=== PATIENT | female | born 1970 | race Caucasian/White ===

== ENCOUNTER 2020-09-10 07:21 | Outpatient (REF) | payer OTHER, SELFPAY ==
[2020-09-10 11:34] LABS: Cholesterol 263 mg/dL; HDL Cholesterol 83 mg/dL; LDL Cholesterol Calculated 166 mg/dl; Triglycerides 71 mg/dL
== END 2020-09-10 07:22 | disposition home or self-care (01) ==
LOC: HO.HMGCLDS 07:21
PROVIDERS: PCP Internal Medicine; Visit Provider Internal Medicine
DX: E78.5 Hyperlipidemia, unspecified (principal); J45.909 Unspecified asthma, uncomplicated; M25.519 Pain in unspecified shoulder
CPT/HCPCS: 36415; 80061

== ENCOUNTER 2021-04-06 20:54 | Emergency (ER) | payer OTHER, SELFPAY ==
[2021-04-06 21:13] VITALS: BP 150/71; PULSE 95; RESP 16; TEMP 37.6; O2SAT 97; BMI 29.9
[2021-04-06 21:38] LABS: COVID-19 Test Positive (Negative)
--- NOTE | 2021-04-06 22:36 | ED.GENADULT ---
HPI - General Adult General Chief complaint: General Medical Stated complaint: covid symptoms Time Seen by Provider: 04/06/21 22:35 Source: patient Mode of arrival: ambulatory Limitations: no limitations History of Present Illness HPI narrative: Patient already been vaccinated against COVID-19 has received booster dose yet with history of asthma and common immunodeficiency on Hizentra subQ Q weekly other family member sick with COVID-19 comes here for 1 day of headache loss of taste sensation congestion , cough, slight short of breath saturating 97% at room air also losing her taste sensation Related Data Home Medications Medication Instructions Recorded Confirmed albuterol sulfate 90 mcg/actuation 2 puff INHALATION Q6H PRN 02/16/20 09/16/20 aerosol inhaler (ProAir HFA) cetirizine 10 mg tablet 10 mg PO DAILY 02/16/20 09/16/20 immun glob G 4 gram/20 mL(20 SUBCUT QWEEK ml 02/16/20 09/16/20 %)-prol-IgA 0-50 mcg/mL subcutaneous soln (Hizentra) multivitamin 1 tab PO DAILY 02/16/20 09/16/20 nystatin 500,000 unit tablet 1,000,000 unit PO BID tab 02/16/20 09/16/20 fluticasone propionate 50 2 spray INTRANASAL DAILY 09/16/20 09/16/20 mcg/actuation nasal spray,suspension Previous Rx's Medication Instructions Recorded sumatriptan succinate 50 mg tablet 50 mg PO BID-TID PRN #12 tab 09/09/20 gabapentin 100 mg capsule 100 mg PO TID #90 cap 09/29/20 dexamethasone 6 mg tablet 6 mg PO DAILY #7 tab 04/06/21 (Decadron) Allergies Allergy/AdvReac Type Severity Reaction Status Date / Time meperidine [Demerol] AdvReac Unknown N/V Verified 09/16/20 08:44 Review of Systems Review of Systems: Yes all other systems are reviewed and are negative PMFSH Past Medical History Medical History Abnormal colonoscopy Annual physical exam Asthma Hyperlipidemia Liver hemangioma Migraine Normal Pap smear Osteoarthritis Seasonal allergic reaction Shoulder pain Vitamin D deficiency Surgical History History of microdiscectomy History of tubal ligation Family History Family History Father HTN (hypertension) Mother No problems noted. Brother No problems noted. Brother No problems noted. Sister No problems noted. Son No problems noted. Son No problems noted. Daughter No problems noted. Social History Social History Alcohol intake: never Patient Tobacco Use Status: Never used Tobacco Advance Directives: No Advance Directives Information Provided: Yes Patient : No Physical Exam Vital Signs: Vital Signs: Last Vital Signs Temp 99.6 F 04/06/21 21:13 Pulse 95 04/06/21 21:13 Resp 16 04/06/21 21:13 BP 150/71 H 04/06/21 21:13 Pulse Ox 97 04/06/21 21:13 BMI result Body Mass Index 29.9 Appearance: Alert. Oriented X3. No acute distress. ENT: Pharynx normal. Oral Mucosa moist Neck: Normal inspection. Neck supple. CVS: Normal heart rate and rhythm. Pulses normal. Respiratory: No respiratory distress. Equal air entry bilateral, no wheezing/rales/rhonchi Abdomen: Soft and nontender. Bowel sounds are present, Skin: Skin warm and dry. Normal skin color. Normal skin turgor. Extremities: No lower extremity edema. No calf tenderness Neuro: Oriented X 3. Medical Decision Making MDM Narrative Medical decision making narrative: Patient with high risk of having complication COVID-19 although she already got the vaccine but she has a common immuno deficiency on gamma globin treatment will give her Decadron advised to follow-up with [facility] for monoclonal antibody treatment if indicated Lab Data Lab results reviewed: Yes I reviewed the patient's lab results. Labs: Lab Results 04/06/21 Range/Units 21:17 COVID-19 ([facility]) Positive A (Negative) COVID-19 Clin Com See Note Discharge Plan Discharge Clinical Impression: COVID-19 Patient Disposition: Home, Self-Care Instructions: COVID-19 (Coronavirus Disease 2019) (ED) Additional Instructions: Social distancing as advised Decadron as prescribed Follow-up with outpatient clinic for monoclonal antibody treatment if indicated Report to the ER if increased shortness of breath or not feeling better Prescriptions: New dexamethasone [Decadron] 6 mg tablet 6 mg PO DAILY Qty: 7 RF: 0 No Action sumatriptan succinate 50 mg tablet 50 mg PO BID-TID PRN (Reason: migraine headache) Qty: 12 RF: 6 gabapentin 100 mg capsule 100 mg PO TID Qty: 90 RF: 1 nystatin 500,000 unit tablet 1,000,000 unit PO BID RF: 0 cetirizine 10 mg tablet 10 mg PO DAILY RF: 0 albuterol sulfate [ProAir HFA] 90 mcg/actuation HFA aerosol inhaler 2 puff inhalation Q6H PRNRF: 0 multivitamin Tablet 1 tab PO DAILY RF: 0 Hizentra 4 gram/20 mL (20 %) solution subcut QWEEK RF: 0 fluticasone propionate 50 mcg/actuation spray,suspension 2 spray intranasal DAILY RF: 0 Interventions: ED Discharge Assessment Last Done: 04/06/21 23:29 Discharge Date/Time: 04/06/21 23:30
[2021-04-06] MEDS: dexAMETHasone 2 MG TABLET 10 MG PO (23:29)
== END 2021-04-06 23:30 | disposition home or self-care (01) ==
PROVIDERS: Emergency Provider Internal Medicine; PCP Registered Nurse
DX: U07.1 COVID-19 (principal); J45.909 Unspecified asthma, uncomplicated; D83.9 Common variable immunodeficiency, unspecified
CPT/HCPCS: 36415; 87635; 99283; J8540

== ENCOUNTER 2021-06-24 19:37 | Emergency (ER) | payer OTHER, SELFPAY ==
--- NOTE | ~2021-06-24 | XR_ITS ---
EXAMINATION: XR ELBOW, RIGHT CLINICAL INFORMATION: Pain with limited range of motion. COMPARISON: None. TECHNIQUE: AP, lateral, and oblique views of the right elbow. XR/XR elbow RT min 3V FINDINGS/IMPRESSION: No acute fractures or malalignment. No joint effusion. Nonspecific diffuse soft tissue swelling. No unexpected foreign bodies.
[2021-06-24 20:00] VITALS: BP 150/99; PULSE 74; RESP 16; TEMP 36.8; O2SAT 97; BMI 32.3
--- NOTE | 2021-06-24 20:49 | ED.EXTPRO ---
HPI - Extremity Problem General Chief complaint: Extremity Injury, Upper Stated complaint: fall a few weeks ago, pain still persists Time Seen by Provider: 06/24/21 20:49 History of Present Illness HPI Narrative: Patient is a 51-year-old female status post accidental fall on to the right elbow proximally 2 weeks prior the contusion has gone down but continued to have some lingering pain although she has good movement of the elbow. Denies any head injury denies any nausea vomiting denies any focal weakness patient is from home. MD Complaint: joint pain Related Data Home Medications Medication Instructions Recorded Confirmed albuterol sulfate 90 mcg/actuation 2 puff INHALATION Q6H PRN 02/16/20 09/16/20 aerosol inhaler (ProAir HFA) cetirizine 10 mg tablet 10 mg PO DAILY 02/16/20 09/16/20 immun glob G 4 gram/20 mL(20 SUBCUT QWEEK ml 02/16/20 09/16/20 %)-prol-IgA 0-50 mcg/mL subcutaneous soln (Hizentra) multivitamin 1 tab PO DAILY 02/16/20 09/16/20 nystatin 500,000 unit tablet 1,000,000 unit PO BID tab 02/16/20 09/16/20 fluticasone propionate 50 2 spray INTRANASAL DAILY 09/16/20 09/16/20 mcg/actuation nasal spray,suspension Previous Rx's Medication Instructions Recorded sumatriptan succinate 50 mg tablet 50 mg PO BID-TID PRN #12 tab 09/09/20 gabapentin 100 mg capsule 100 mg PO TID #90 cap 09/29/20 dexamethasone 6 mg tablet 6 mg PO DAILY #7 tab 04/06/21 (Decadron) Allergies Allergy/AdvReac Type Severity Reaction Status Date / Time meperidine [Demerol] AdvReac Unknown N/V Verified 09/16/20 08:44 Review of Systems Review of Systems: Positive pain to the right elbow Yes all other systems are reviewed and are negative PMFSH Past Medical History Attestation statement: The following information was validated with the patient. Medical History Abnormal colonoscopy Annual physical exam Asthma Hyperlipidemia Liver hemangioma Migraine Normal Pap smear Osteoarthritis Seasonal allergic reaction Shoulder pain Vitamin D deficiency Surgical History History of microdiscectomy History of tubal ligation Family History Family History Father HTN (hypertension) Mother No problems noted. Brother No problems noted. Brother No problems noted. Sister No problems noted. Son No problems noted. Son No problems noted. Daughter No problems noted. Social History Social History Alcohol intake: never Patient Tobacco Use Status: Never used Tobacco Advance Directives: No Advance Directives Information Provided: Yes Patient : No Physical Exam Vital Signs: Vital Signs: Last Vital Signs Temp 98.2 F 06/24/21 20:00 Pulse 74 06/24/21 20:00 Resp 16 06/24/21 20:00 BP 150/99 H 06/24/21 20:00 Pulse Ox 97 06/24/21 20:00 BMI result Body Mass Index 32.3 Appearance: Alert. Oriented X3. No acute distress. Eyes: Pupils equal, round and reactive to light. ENT: Pharynx normal. Neck: Normal inspection. Neck supple. No lymph nodes noted. No crepitus CVS: Normal heart rate and rhythm. Pulses normal. Normal S1 and S2 Respiratory: No respiratory distress. Breath sounds normal. No Wheezing. No rales Abdomen: Soft and nontender. No rigidity. No distention. good BS x4 Skin: Skin warm and dry. Normal skin color. Normal skin turgor. Extremities: examination of the right elbow show good range of motion there is small amount of contusion that is noted. Sensation over the median radial ulnar nerve distally was intact. Sensation over the axillary nerve intact. Pulse 2 + at radial skin grossly intact movement of the finger wrist intact. Neuro: Oriented X 3. No motor deficit. No sensory deficit. Moving all extermities. No slurred speech MDM - Extremity (Nontraumatic) MDM Narrative Medical decision making narrative: X-ray of the elbow showed no gross fracture. Patient well-appearing. Will discharge patient home close follow-up on an outpati Discharge Plan Discharge Clinical Impression: Contusion Patient Disposition: Home, Self-Care Instructions: Contusion in Adults (ED) Prescriptions: No Action sumatriptan succinate 50 mg tablet 50 mg PO BID-TID PRN (Reason: migraine headache) Qty: 12 6RF gabapentin 100 mg capsule 100 mg PO TID Qty: 90 1RF dexamethasone [Decadron] 6 mg tablet 6 mg PO DAILY Qty: 7 0RF nystatin 500,000 unit tablet 1,000,000 unit PO BID 0RF cetirizine 10 mg tablet 10 mg PO DAILY 0RF albuterol sulfate [ProAir HFA] 90 mcg/actuation HFA aerosol inhaler 2 puff inhalation Q6H PRN0RF multivitamin Tablet 1 tab PO DAILY 0RF Hizentra 4 gram/20 mL (20 %) solution subcut QWEEK 0RF fluticasone propionate 50 mcg/actuation spray,suspension 2 spray intranasal DAILY 0RF Referrals: Gee Herrera MD [Physician] - 2 days
== END 2021-06-24 21:09 | disposition home or self-care (01) ==
PROVIDERS: Emergency Provider Emergency Medicine Emergency Medical Services; PCP Registered Nurse
DX: M25.521 Pain in right elbow (principal); S50.01XD Contusion of right elbow, subsequent encounter; W19.XXXD Unspecified fall, subsequent encounter
CPT/HCPCS: 73080; 99283

== ENCOUNTER 2022-02-15 20:36 | Emergency (ER) | payer OTHER, SELFPAY ==
--- NOTE | ~2022-02-15 | XR_ITS ---
EXAMINATION: XR HAND, LEFT CLINICAL INFORMATION: Trauma. Swelling. COMPARISON: None TECHNIQUE: Three views of the left hand. FINDINGS: Comminuted fracture of the proximal phalanx of the fifth finger. Fracture involves the articular surface of the bone at the PIP joint and extends through the shaft to the proximal ulnar side of the bone. Mild displacement of fracture fragments. XR/XR hand LT 2V IMPRESSION: Comminuted intra-articular fracture of the proximal phalanx of the fifth finger.
[2022-02-15 21:00] VITALS: BP 171/90; PULSE 75; RESP 17; TEMP 36.9; O2SAT 100; BMI 29.0
--- NOTE | 2022-02-15 23:09 | ED_ITS ---
HPI - Extremity Problem General Chief complaint: Extremity Injury, Upper Stated complaint: dog pulled her over Time Seen by Provider: 02/15/22 23:09 Source: patient Mode of arrival: ambulatory Limitations: no limitations History of Present Illness HPI Narrative: 51-year-old female presents with left hand pain and bruising after being pulled over by her dog. She has pain and swelling with bruising over the 3rd knuckle of the hand. She does not report any other injuries. MD Complaint: extremity pain and extremity swelling Onset (ago): hour(s) (Within an hour of arrival) Pain Consistency: constant Location: left (Fifth finger) Severity scale (1-10): 7 Quality: aching Radiation: proximal Relieving factors: cold therapy and rest Exacerbating factors: range of motion and palpation Associated symptoms: denies other symptoms Context: immobilization Related Data Home Medications Medication Instructions Recorded Confirmed albuterol sulfate 90 mcg/actuation 2 puff inhalation Q6H PRN 02/16/20 09/16/20 aerosol inhaler (ProAir HFA) cetirizine 10 mg tablet 10 mg PO DAILY 02/16/20 09/16/20 immun glob G 4 gram/20 mL(20 subcut QWEEK 02/16/20 09/16/20 %)-prol-IgA 0-50 mcg/mL subcutaneous soln (Hizentra) multivitamin 1 tab PO DAILY 02/16/20 09/16/20 nystatin 500,000 unit tablet 1,000,000 unit PO BID 02/16/20 09/16/20 fluticasone propionate 50 2 spray intranasal DAILY 09/16/20 09/16/20 mcg/actuation nasal spray,suspension Previous Rx's Medication Instructions Recorded sumatriptan succinate 50 mg tablet 50 mg PO BID-TID PRN migraine 09/09/20 headache #12 tabs gabapentin 100 mg capsule 100 mg PO TID #90 caps 09/29/20 dexamethasone 6 mg tablet 6 mg PO DAILY #7 tabs 04/06/21 (Decadron) sumatriptan succinate 50 mg tablet 50 mg PO Q2-4H PRN migraine 02/15/22 headache #20 tabs Allergies Allergy/AdvReac Type Severity Reaction Status Date / Time meperidine [Demerol] AdvReac Unknown N/V Verified 02/15/22 21:02 Review of Systems Review of Systems: Constitutional: No Fever, No Chills ENT/Mouth: No Ear Pain, No Hoarseness, No sore throat Eyes: No Eye Pain, No Swelling, No Redness, No Foreign Body Cardiovascular: No Chest Pain, No SOB Respiratory: No Cough, No Dyspnea Gastrointestinal: No Nausea, No Vomiting, No Diarrhea, No abdominal Pain Genitourinary: No Dysuria, No Hematuria Musculoskeletal: positive left finger and hand pain, No Myalgias, No Joint Swelling Skin: Positive superficial laceration to the 4th finger, No rash Neuro: No Weakness, No Numbness, No Paresthesias, No Loss of Consciousness, No Dizziness, No Headache Psych: No Anxiety/Panic, No Depression Heme/Lymph: no easy bruising, no Lymphadenopathy Endocrine: No Polyuria, No Polydipsia Yes all other systems are reviewed and are negative [facility] Past Medical History Attestation statement: The following information was validated with the patient. Source: old records reviewed Medical History Abnormal colonoscopy Annual physical exam Asthma Hyperlipidemia Liver hemangioma Migraine Normal Pap smear Osteoarthritis Seasonal allergic reaction Shoulder pain Vitamin D deficiency Surgical History History of microdiscectomy History of tubal ligation Family History Family History Father HTN (hypertension) Mother No problems noted. Brother No problems noted. Brother No problems noted. Sister No problems noted. Son No problems noted. Son No problems noted. Daughter No problems noted. Social History Social History Alcohol intake: never Patient Tobacco Use Status: Never used Tobacco Advance Directives: No Advance Directives Information Provided: Yes Patient : No Physical Exam Vital Signs: Vital Signs: Last Vital Signs Temp 99 F 02/15/22 23:23 Pulse 76 02/15/22 23:23 Resp 17 02/15/22 23:23 BP 145/92 H 02/15/22 23:23 Pulse Ox 98 02/15/22 23:23 O2 Del Method 02/15/22 23:23 BMI result Body Mass Index 29.0 Appearance: Alert. Oriented X3. No acute distress. Eyes: Pupils equal, round and reactive to light. ENT: Pharynx normal. Neck: Normal inspection. Neck supple. CVS: Normal heart rate and rhythm. Pulses normal. Respiratory: No respiratory distress. Breath sounds normal. Abdomen: Soft and nontender. Skin: Superficial laceration over the 4th MCP. Skin warm and dry. Normal skin color. Normal skin turgor. Extremities: Bruising swelling and tenderness to the 5th left finger, bruising over the 3rd MCP , decreased range of motion to the 4th and 5th fingers, displaced fracture noted on x-ray prior to physical exam. Neuro: No motor deficit. No sensory deficit. Cranial nerves 2-12 intact. Course Course Course Narrative: 51-year-old female presents for evaluation of a left 5th finger and hand injury. X-rays completed while patient was in the emergency department waiting room, indicates a comminuted fracture of the proximal phalanx of the 5th finger involving the articular surface of the bone at the PIP and extends through the shaft of the proximal ulnar side of the bone. She does have a superficial abrasion over the 4th MCP joint, and some swelling and bruising over the 3rd MCP joint. There is no indication of tendon deficit, however she does have some decreased range of motion secondary to the extent of her injury. She has brisk capillary refill, sensations within normal limits, and is neurovascularly intact. Plan is to yanci tape fingers together. Update Tdap vaccine. Will have patient follow-up with primary care physician in 1 week. If patient notices any worsening swelling or pain, or indication of infection patient will return sooner. Lysed understanding of and agrees to plan of care to discharge home. Verbalized understanding of signs symptoms indicating need for emergent intervention. MDM - Extremity (Nontraumatic) MDM Narrative Medical decision making narrative: Fracture, dislocation, tendon deficit Medical Records Attestation: I reviewed the patient's medical records. Imaging Data Hand x-ray: Attestation: I personally reviewed and interpreted this imaging study as follows: Radiologist's impression: EXAMINATION: XR HAND, LEFT CLINICAL INFORMATION: Trauma. Swelling.? COMPARISON: None? TECHNIQUE: Three views of the left hand. FINDINGS: Comminuted fracture of the proximal phalanx of the fifth finger. Fracture involves the articular surface of the bone at the PIP joint and extends through the shaft to the proximal ulnar side of the bone. Mild displacement of fracture fragments.? XR/XR hand LT 2V IMPRESSION: Comminuted intra-articular fracture of the proximal phalanx of the fifth finger. ? Discharge Plan Discharge Clinical Impression: Finger fracture, left Patient Disposition: Home, Self-Care Instructions: Finger Fracture (ED), R.I.C.E. Treatment (ED) Additional Instructions: You were evaluated for hand injury. The left 5th finger is fractured in mult iple places. Please keep your fingers taped together for 4 weeks. Please follow up with your primary care physician this week for evaluation. If you notice any worsening symptoms, or symptoms of infection please return immediately for evaluation. We updated your Tdap vaccine today. We refilled her sumatriptan prescription. Please take this medication as directed for migraines. Thank you for choosing this emergency department for evaluation. Please follow-up with primary care physician as needed. Return to the emergency department for any new, concerning, or worsening symptoms. Prescriptions: New sumatriptan succinate 50 mg tablet 50 mg PO Q2-4H PRN (Reason: migraine headache) Qty: 20 0RF Rx Instructions: do not exceed 4 doses per 24 hrs No Action sumatriptan succinate 50 mg tablet 50 mg PO BID-TID PRN (Reason: migraine headache) Qty: 12 6RF gabapentin 100 mg capsule 100 mg PO TID Qty: 90 1RF dexamethasone [Decadron] 6 mg tablet 6 mg PO DAILY Qty: 7 0RF nystatin 500,000 unit tablet 1,000,000 unit PO BID cetirizine 10 mg tablet 10 mg PO DAILY albuterol sulfate [ProAir HFA] 90 mcg/actuation HFA aerosol inhaler 2 puff inhalation Q6H PRN multivitamin Tablet 1 tab PO DAILY Hizentra 4 gram/20 mL (20 %) solution subcut QWEEK fluticasone propionate 50 mcg/actuation spray,suspension 2 spray intranasal DAILY Stand Alone Forms: Work/School Release Interventions: ED Discharge Assessment Last Done: 02/15/22 23:46 Discharge Date/Time: 02/15/22 23:47
[2022-02-15 23:23] VITALS: BP 145/92; PULSE 76; RESP 17; TEMP 37.2; O2SAT 98
[2022-02-15] MEDS: Diphth,Pertus(ACell),Tet Adult 0.5 ML SYRINGE IM (23:28)
--- OUTSIDE RECORDS SUMMARY | 2022-02-15 23:39 | XMS_ITS | Continuity of Care Document ---
:1970 Author Organization [facility] Address [address] [place] [id number]- Care Team Providers Name Role Phone Paz ALMARAZ, Jordyn Grey Primary Care Physician Encounter [facility] [place] Date(s): 05/26/19 - 05/26/[address] [address]- [facility] Attending Physician: Adrianna Frey Allergies, Adverse Reactions, Alerts Substance Reaction Severity Status Demerol HCl N/V Active Medications Golytely - oral powder for reconstitution 240 mL, By Mouth, Every 10 minutes, # 4,000 mL, 0 Refills, Maintenance, 04/02/17 16:23:33, REC Powder, 240 mL By Mouth Every 10 minutes Start Date: 04/02/17 Status: OrderedMultivitamin 1 tab, By Mouth, Daily, 0 Refills, Maintenance Start Date: 07/23/12 Status: Orderedomeprazole 40 mg oral enteric coated capsule 1 capsule = 40 mg, By Mouth, Daily, # 90 capsule, 0 Refills, Maintenance, 06/06/17 14:19:30, EC Capsule Start Date: 06/06/17 Status: OrderedProAir HFA 90 mcg/inh inhalation aerosol with adapter 2 puffs, Inhalation, 4 times a day, PRN Wheezing/Shortness of Breath, 0 Refills, Maintenance Start Date: 07/23/12 Status: Orderedrifampin 150 mg oral capsule 2 capsule = 300 mg, By Mouth, Daily, 0 Refills, Maintenance, 04/02/17 15:26:39 Start Date: 04/02/17 Status: OrderedvalACYclovir 500 mg oral tablet 500 mg, 1, tablet, By Mouth, Daily, Refills 0, Maintenance, 04/02/17 15:26:54 Start Date: 04/02/17 Status: OrderedViactiv Soft Calcium Chews Calcium with Vitamin D and K oral tablet, chewable 1-2 chews, By Mouth, Daily, 0 Refills, Maintenance Start Date: 07/23/12 Status: Ordered Problem List Condition Effective Dates Status Health Status Informant Serrated polyp of colon(Confirmed) 06/15/17 Active
--- OUTSIDE RECORDS SUMMARY | 2022-02-15 23:39 | XMS_ITS | Continuity of Care Document ---
:1970 Author Organization [facility] Address [address] [facility], [address] [place] [address]- Care Team Providers Name Role Phone Paz ALMARAZ, Jordyn Primary Care Physician Encounter 02/23/21 - 03/02/21 [facility] [address] [facility] [address], [address] [place] [address]- Attending Physician: Yadiel ALMARAZ, Heidi Grey Admitting Physician: Yadiel ALMARAZ, Heidi Grey Referring Physician: Yadiel ALMARAZ, Heidi Grey Allergies, Adverse Reactions, Alerts Substance Reaction Severity Status Demerol HCl N/V Active Medications gabapentin 100 mg oral capsule 100 mg, 1, capsule, By Mouth, 3 times a day, # 180 capsule, Refills 0, Maintenance, 06/02/19 9:54:00EST Start Date: 06/02/19 Stop Date: 07/02/19 Status: OrderedProAir HFA 90 mcg/inh inhalation aerosol with adapter 2 puffs, Inhalation, 4 times a day, PRN Wheezing/Shortness of Breath, 0 Refills, Maintenance Start Date: 07/23/12 Status: OrderedvalACYclovir 500 mg oral tablet 500 [...]
--- OUTSIDE RECORDS SUMMARY | 2022-02-15 23:39 | XMS_ITS | Continuity of Care Document ---
:1970 Author Organization [facility] Address [address] [place] [id number]- Care Team Providers Name Role Phone Paz ALMARAZ, Jordyn Grey Primary Care Physician [place] [facility] [place]04[place] - 05/11/[address] [address]- [facility] Attending Physician: Heidi Cotto NP Allergies, Adverse Reactions, Alerts Substance Reaction Severity [...]
--- OUTSIDE RECORDS SUMMARY | 2022-02-15 23:39 | XMS_ITS | Continuity of Care Document ---
:1970 Author Organization [facility] Address [address], [address]rd Floor, [address] [place] [id number]- Care Team Providers Name Role Phone Paz ALMARAZ, Jordyn Primary Care Physician Encounter [facility] [place] Date(s): 03/11/20 - 07/09/20 [facility] [address], [address]rd [facility], [address] [place] [id number] Attending Physician: Yuly Castillo MD Admitting Physician: Yuly Castillo MD Allergies, Adverse Reactions, Alerts Substance Reaction Severity [...]
--- OUTSIDE RECORDS SUMMARY | 2022-02-15 23:39 | XMS_ITS | Continuity of Care Document ---
:1970 Author Organization [facility] Address [address] [facility], 3rd Floor, [address] [place] [id number]- Care Team Providers Name Role Phone Paz ALMARAZ, Jordyn Primary Care Physician Encounter [facility] [place] Date(s): 06/09/20 - 07/09/20 [facility] [address] [facility], 3rd Floor, [address] [place] [id number] Attending Physician: Anabella Donaldson Admitting Physician: Anabella Donaldson Referring Physician: AdmtrAnabella Allergies, Adverse Reactions, Alerts Substance Reaction Severity [...]
[2022-02-15] MEDS: Ibuprofen 600 MG TABLET PO (23:41)
== END 2022-02-15 23:47 | disposition home or self-care (01) ==
PROVIDERS: Emergency Provider Emergency Medicine; PCP Registered Nurse
DX: S62.617A Displaced fracture of proximal phalanx of left little finger, initial encounter for closed fracture (principal); X50.0XXA Overexertion from strenuous movement or load, initial encounter; Y93.K1 Activity, walking an animal; Y92.480 Sidewalk as the place of occurrence of the external cause; Y99.9 Unspecified external cause status
CPT/HCPCS: 73120; 90471; 90715; 99284

== ENCOUNTER 2022-02-17 14:45 | Emergency (ER) | payer OTHER, SELFPAY ==
--- NOTE | ~2022-02-17 | XR_ITS ---
EXAMINATION: XR RIBS, RIGHT WITH PA CHEST CLINICAL INFORMATION: Status post fall. Right-sided rib pain. COMPARISON: None TECHNIQUE: PA view of the chest and 3 views of the right ribs were obtained. FINDINGS: Lungs are clear. No consolidation, pneumothorax, or pleural effusion. The cardiomediastinal silhouette and pulmonary vasculature are normal. Osseous structures are unremarkable. Ribs are intact. No fractures are identified. XR/XR ribs RT min 3V w CXR1V IMPRESSION: No acute pulmonary process. No radiographic evidence of fracture or fracture at this time.
[2022-02-17 14:58] VITALS: BP 147/93; PULSE 84; RESP 18; TEMP 36.4; O2SAT 97; BMI 29.0
[2022-02-17 15:31] LABS: MANUAL DIFF FLAG NO
[2022-02-17 15:32] LABS: Basophils Percent Auto 0.4 % (0-2); Eosinophils Percent Auto 0.3 % (0-4); Hematocrit 40.8 % (37.0-47.0); Imm Gran Abs Auto 0.02 X10*3/uL (0.00-0.03); Imm Gran Pct Auto 0.3 % (0.0-0.4); Lymphocytes Absolute Auto 1.2 X10*3/uL (1.2-4.9); Lymphocytes Percent Auto 15.5 % (20-40); Mean Corpuscular HGB Conc 34.3 g/dl (31.0-35.0); Mean Corpuscular Hemoglobin 30.1 pg (27.0-33.0); Mean Corpuscular Volume 87.7 fL (80.0-98.0); Mean Platelet Volume 9.2 fL (9.4-12.3); Monocytes Absolute Auto 0.4 X10*3/uL (0.1-1.2); Monocytes Percent Auto 5.8 % (2-11); Neutrophils Absolute Auto 5.9 x10*3/uL (2.0-8.3); Neutrophils Percent Auto 77.7 % (45-73); Platelet Count 286 X10*3/uL (160-400); Red Blood Count 4.65 X10*6/uL (4.20-5.50); Red Cell Distribution Width 12.8 % (11.0-16.0); White Blood Count 7.6 X10*3/uL (4.8-10.8)
[2022-02-17 15:51] LABS: Alanine Aminotransferase 33 U/L (0-31); Albumin Level 4.3 g/dL (3.5-5.0); Alkaline Phosphatase 89 U/L (39-117); Anion Gap 16 (12-20); Aspartate Amino Transferase 29 U/L (5-31); Bilirubin Total 0.4 mg/dL (0.0-1.0); Blood Urea Nitrogen 17 mg/dL (9-16); Calcium 9.6 mg/dL (8.4-10.2); Carbon Dioxide 26 mmol/L (22-29); Chloride 104 mmol/L (96-108); Creatinine Clr Calc Pharmacy 54.2; Estimated Glomerular Filt Rate 56; Glucose Random 97 mg/dL (60-115); Potassium 4.2 mmol/L (3.3-5.1); Sodium 142 mmol/L (135-145); Total Protein 7.4 g/dL (6.5-8.0)
--- NOTE | 2022-02-17 15:51 | ED_ITS ---
HPI - General Adult General Chief complaint: Wound/Laceration Stated complaint: infected hand? Time Seen by Provider: 02/17/22 15:44 History of Present Illness HPI narrative: Patient complains of redness and swelling to back of left hand, she did fall and scraped the back of her left hand 2 days ago and was seen in the ER where she was diagnosed with a fracture of the proximal phalanx of the left pinky, she denies any fever or chills She also is complaining of some right upper posterior rib pain, no difficulty breathing, it does hurt when she moves certain ways but she is breathing comfortably Related Data Home Medications Medication Instructions Recorded Confirmed albuterol sulfate 90 mcg/actuation 2 puff inhalation Q6H PRN 02/16/20 09/16/20 aerosol inhaler (ProAir HFA) cetirizine 10 mg tablet 10 mg PO DAILY 02/16/20 09/16/20 immun glob G 4 gram/20 mL(20 subcut QWEEK 02/16/20 09/16/20 %)-prol-IgA 0-50 mcg/mL subcutaneous soln (Hizentra) multivitamin 1 tab PO DAILY 02/16/20 09/16/20 nystatin 500,000 unit tablet 1,000,000 unit PO BID 02/16/20 09/16/20 fluticasone propionate 50 2 spray intranasal DAILY 09/16/20 09/16/20 mcg/actuation nasal spray,suspension Previous Rx's Medication Instructions Recorded sumatriptan succinate 50 mg tablet 50 mg PO BID-TID PRN migraine 09/09/20 headache #12 tabs gabapentin 100 mg capsule 100 mg PO TID #90 caps 09/29/20 dexamethasone 6 mg tablet 6 mg PO DAILY #7 tabs 04/06/21 (Decadron) sumatriptan succinate 50 mg tablet 50 mg PO Q2-4H PRN migraine 02/15/22 headache #20 tabs cephalexin 500 mg tablet 500 mg PO QID 7 days #28 tabs 02/17/22 doxycycline hyclate 100 mg capsule 100 mg PO BID 7 days #14 caps 02/17/22 Allergies Allergy/AdvReac Type Severity Reaction Status Date / Time meperidine [Demerol] AdvReac Unknown N/V Verified 02/15/22 21:02 Review of Systems Review of Systems: Positive for left hand pain and swelling as well as rib pain after fall Negative no fever no chills no dizziness or weakness no headache no neck pain no chest pain no shortness of breath no abdominal pain no numbness weakness or tingling Yes all other systems are reviewed and are negative [facility] Past Medical History Source: nursing notes reviewed Medical History Abnormal colonoscopy Annual physical exam Asthma Hyperlipidemia Liver hemangioma Migraine Normal Pap smear Osteoarthritis Seasonal allergic reaction Shoulder pain Vitamin D deficiency Surgical History History of microdiscectomy History of tubal ligation Family History Family History Father HTN (hypertension) Mother No problems noted. Brother No problems noted. Brother No problems noted. Sister No problems noted. Son No problems noted. Son No problems noted. Daughter No problems noted. Social History Social History Alcohol intake: never Patient Tobacco Use Status: Never used Tobacco Advance Directives: No Advance Directives Information Provided: Yes Physical Exam ED Vital Signs: Vital Signs - 24 hr 02/17/22 14:58 Temperature 97.5 F Pulse Rate 84 Respiratory Rate 18 Blood Pressure 147/93 H Pulse Oximetry 97 Oxygen Delivery Method Room Air BMI result Body Mass Index 29.0 General appearance comfortable no distress Head is normocephalic atraumatic Neck is supple Respiratory no distress Chest exam lungs are clear to auscultation bilateral with full symmetric equal breath sounds Chest wall did have some lateral right upper tenderness, no deformities Abdomen soft nontender Extremities the left hand had a small abrasion over the right 3rd MCP and there was local surrounding warmth and erythema and tenderness, there was no swellin, no fluctuance no discharge , no lymphangitis There was tenderness over left 5th PIP joint, but there was no break in the skin no evidence of any joint infection there was no redness over the 5th MCP or the 5th digit The hand was neurovascular intact distal with no evidence of any tendon deficits Other extremities normal Course Course Course Narrative: Rib and chest x-ray were negative so patient has pain in that area is likely from a muscle strain or bruising The left hand redness and warmth is consistent with a cellulitis without abscess, no evidence of tenosynovitis, the palmar surface had no redness, patient can extend the fingers fully, no tenderness over tender sheath Patient was discharged on antibiotic with referral to orthopedist Medical Decision Making Lab Data Result diagrams: 02/17/22 15:26 02/17/22 15:26 Labs: Lab Results 02/17/22 02/17/22 Range/Units 15:26 15:26 WBC 7.6 (4.8-10.8) X10*3/uL RBC 4.65 (4.20-5.50) X10*6/uL Hgb 14.0 (12.0-16.0) g/dl Hct 40.8 (37.0-47.0) % MCV 87.7 (80.0-98.0) fL MCH 30.1 (27.0-33.0) pg MCHC 34.3 (31.0-35.0) g/dl RDW 12.8 (11.0-16.0) % Plt Count 286 (160-400) X10*3/uL MPV 9.2 L (9.4-12.3) fL Immature Gran % (Auto) 0.3 (0.0-0.4) % Neut % (Auto) 77.7 H (45-73) % Lymph % (Auto) 15.5 L (20-40) % Quay % (Auto) 5.8 (2-11) % Eos % (Auto) 0.3 (0-4) % Baso % (Auto) 0.4 (0-2) % Lymph # (Auto) 1.2 (1.2-4.9) X10*3/uL Quay # (Auto) 0.4 (0.1-1.2) X10*3/uL Eos # (Auto) 0.0 (0.0-0.4) X10*3/uL Baso # (Auto) 0.0 (0.0-0.2) X10*3/uL Abs Immat Gran (auto) 0.02 (0.00-0.03) X10*3/uL Absolute Neuts (auto) 5.9 (2.0-8.3) x10*3/uL Absolute Nucleated RBC 0.000 (0.0-0.012) X10*3/uL Nucleated RBC % (auto) 0.0 (0.0-0.2) /100WBC Sodium 142 (135-145) mmol/L Potassium 4.2 (3.3-5.1) mmol/L Chloride 104 (96-108) mmol/L Carbon Dioxide 26 (22-29) mmol/L Anion Gap 16 (12-20) BUN 17 H (9-16) mg/dL Creatinine 1.04 (0.5-1.4) mg/dL Estim Creat Clear Calc 54.2 Estimated GFR 56 Random Glucose 97 (60-115) mg/dL Calcium 9.6 (8.4-10.2) mg/dL Total Bilirubin 0.4 (0.0-1.0) mg/dL AST 29 (5-31) U/L ALT 33 H (0-31) U/L Alkaline Phosphatase 89 (39-117) U/L Total Protein 7.4 (6.5-8.0) g/dL Albumin 4.3 (3.5-5.0) g/dL Discharge Plan Discharge Clinical Impression: Cellulitis of hand, left, Sprain and strain of ribs Patient Disposition: Home, Self-Care Additional Instructions: We wrote antibiotics for the infection on the back of her left hand Your scheduled to follow with your doctor in 3 days so you can recheck it there If redness spreads, any worse pain and swelling red stripe up your arm fever anything you feel is getting worse or any concerns return to the ER any time and we can check it The x-ray of her chest and right ribs was normal so most likely these are either muscle or cartilage strains For the broken finger follow with hand doctor or orthopedist Prescriptions: New doxycycline hyclate 100 mg capsule 100 mg PO BID 7 Days Qty: 14 0RF cephalexin 500 mg tablet 500 mg PO QID 7 Days Qty: 28 0RF No Action sumatriptan succinate 50 mg tablet 50 mg PO BID-TID PRN (Reason: migraine headache) Qty: 12 6RF gabapentin 100 mg capsule 100 mg PO TID Qty: 90 1RF dexamethasone [Decadron] 6 mg tablet 6 mg PO DAILY Qty: 7 0RF sumatriptan succinate 50 mg tablet 50 mg PO Q2-4H PRN (Reason: migraine headache) Qty: 20 0RF Rx Instructions: do not exceed 4 doses per 24 hrs nystatin 500,000 unit tablet 1,000,000 unit PO BID cetirizine 10 mg tablet 10 mg PO DAILY albuterol sulfate [ProAir HFA] 90 mcg/actuation HFA aerosol inhaler 2 puff inhalation Q6H PRN multivitamin Tablet 1 tab PO DAILY Hizentra 4 gram/20 mL (20 %) solution subcut QWEEK fluticasone propionate 50 mcg/actuation spray,suspension 2 spray intranasal DAILY Referrals: Breanna Martino MD [Physician] - (Left 5th finger fracture, left hand infection) Interventions: ED Discharge Assessment Last Done: 02/17/22 17:16 Discharge Date/Time: 02/17/22 17:17
[2022-02-17] MEDS: cephALEXin 500 MG CAPSULE PO (16:09)
== END 2022-02-17 17:17 | disposition home or self-care (01) ==
PROVIDERS: Emergency Provider Emergency Medicine; PCP Registered Nurse
DX: L03.114 Cellulitis of left upper limb (principal); S23.41XA Sprain of ribs, initial encounter; S29.011A Strain of muscle and tendon of front wall of thorax, initial encounter; W19.XXXA Unspecified fall, initial encounter; Y93.9 Activity, unspecified; Y92.9 Unspecified place or not applicable; Y99.9 Unspecified external cause status
CPT/HCPCS: 36415; 71101; 80053; 85025; 99283

== ENCOUNTER 2022-03-02 11:02 | Outpatient (REF) | payer OTHER, SELFPAY ==
--- NOTE | ~2022-03-02 | XR_ITS ---
EXAMINATION: XR HAND, LEFT CLINICAL INFORMATION: Pain. Fracture. COMPARISON: Previous x-ray 02/15/2022 TECHNIQUE: Four views of the left hand. FINDINGS: Bone alignment is normal. No fracture or dislocation. Minimally displaced fracture of the proximal phalanx of the fifth finger intra-articular with the PIP joint. No other fracture. This appears unchanged from recent exam. Normal soft tissues. XR/XR hand LT min 3V IMPRESSION: No change in the minimally displaced intra-articular fracture of the proximal phalanx of the fifth finger.
== END 2022-03-02 11:03 | disposition home or self-care (01) ==
LOC: HO.HOSX 11:02
PROVIDERS: Visit Provider Physician Assistant
DX: M79.642 Pain in left hand (principal)
CPT/HCPCS: 73130

== ENCOUNTER 2022-03-06 15:56 | Day surgery (SDC) | payer OTHER, SELFPAY ==
[2022-03-06 16:06] VITALS: BMI 29.2
--- NOTE | 2022-03-06 16:51 | MHC.SHP ---
Pre-Procedural Eval Section A Date of Service: 03/06/22 The patient is an INPATIENT: No Changes since office visit: No Cold of Flu in the past 2 weeks, No New Medical Problems, No Changes in Medication and No Patient answered all questions The History & Physical has been completed within 30 days and I have reviewed it.: Yes Section B Chief Complaint: right middle finger abscess Allergies: Allergies Allergy/AdvReac Type Severity Reaction Status Date / Time meperidine [Demerol] AdvReac Unknown N/V Verified 03/06/22 11:33 Plan I have reviewed the history and physical and performed a pertinent physical examination on my patient. No changes have occurred unless specified.
--- NOTE | 2022-03-06 16:52 | P.OP_ITS ---
Operative Note Operative Note Date of Service: 03/06/22 Narrative: Operative Note Preop diagnosis: 1. right middle finger abscess Postop diagnosis: same Procedure: 1. I&D right middle finger abscess Surgeon: Breanna Martino MD Anesthesia: digital block using 1% lidocaine with epinephrine Findings: purulence, creamy yellow EBL: Less than 5 mL Tourniquet time: None Specimens: fluid sent for cultures Complications: None Disposition: Brought to recovery room in stable condition Plan: continue oral Augmentin until finished may remove dressing in 2 days to begin wound care Follow-up in 1 week for wound check and suture removal and to check cultures we will also obtain radiographs to continued to evaluate the small finger proximal phalanx fracture for healing and alignment. Indications: The patient is 51 years old, with a right middle finger abscess that has not improved on antibiotics . The risks and benefits of operative treatment including but not limited to risk of damage to blood vessels, nerves, tendons, infection, persistent pain, persistent symptoms, recurrence or possible need for additional surgery were discussed with the patient and the patient wishes to proceed with surgery. Procedure: Once consent was obtained a local block was performed in the preop area using a combination of 1% lidocaine with epinephrine. The patient was then brought back to the operating suite and placed on the operative table in supine position. The limb was prepped and draped in a standard surgical fashion. Once assured that we had a good block, I made a 1 cm oblique incision in line with the obliquely oriented 2.5 cm long by 1.5 cm wide abscess over the dorsal aspect of the middle finger proximal phalanx. The incision was made through the skin the subcutaneous tissues. Cultures were taken of the creamy yellow pur ulent material. I then used an Angiocath on a 10 mL syringe to copiously irrigate the abscess cavity. We also squeezed out some thicker fibrinous exudate. Once satisfied with Our I and D the wound was copiously irrigated with normal saline and hemostasis was obtained with a brief period of local pressure. The wound was left open to facilitate drainage. A sterile dressing was applied. We also applied a Cob[place] yanci tape band between the small and ring fingers to protect the small finger proximal phalanx fracture that is being treated non operatively. Clinical alignment appears to be satisfactory. The patient appears to have tolerated the procedure well and with no complications. All digits were well vascularized at the conclusion of the case.
[2022-03-06 17:45] VITALS: BP 126/74; PULSE 83; RESP 18; TEMP 36.4; O2SAT 96
== END 2022-03-06 18:10 | disposition home or self-care (01) ==
PROVIDERS: PCP Internal Medicine; Visit Provider Orthopaedic Surgery
PROC: (CPT 26010; principal; 2022-03-06 16:30)
DX: L02.511 Cutaneous abscess of right hand (principal); S62.616D Displaced fracture of proximal phalanx of right little finger, subsequent encounter for fracture with routine healing; W18.39XD Other fall on same level, subsequent encounter; J45.909 Unspecified asthma, uncomplicated; E78.5 Hyperlipidemia, unspecified
CPT/HCPCS: 26010; 87070; 87077; 87186; 87205

== ENCOUNTER 2022-03-15 | Outpatient (REF) | payer OTHER, SELFPAY ==
--- NOTE | ~2022-03-15 | XR_ITS ---
EXAMINATION: XR HAND, LEFT CLINICAL INFORMATION: Fracture COMPARISON: Previous x-rays most recent February 2022 TECHNIQUE: PA, lateral, and oblique views of the left hand. FINDINGS: The oblique comminuted fracture of the proximal phalanx of the fifth finger intra-articular with the PIP joint does not appear appreciably changed. No other fracture. Joint spaces are otherwise normal. Soft tissue swelling adjacent to the fracture. XR/XR hand LT min 3V IMPRESSION: No change in the fracture of the proximal phalanx of the fifth finger.
== END 2022-03-15 00:01 | disposition home or self-care (01) ==
LOC: HO.HOSX
PROVIDERS: Visit Provider Orthopaedic Surgery
DX: M79.642 Pain in left hand (principal)
CPT/HCPCS: 73130

== ENCOUNTER 2022-04-11 12:40 | Outpatient (REF) | payer OTHER, SELFPAY ==
--- NOTE | ~2022-04-11 | XR_ITS ---
EXAMINATION: XR HAND, LEFT CLINICAL INFORMATION: Fracture. COMPARISON: 03/15/2022 and studies dating back to 02/15/2022. TECHNIQUE: Three views of the left hand. FINDINGS: There is no significant change in appearance of oblique fracture through the 5th proximal phalanx. Fracture lines are still evident with mild periosteal new bone formation being seen. No acute fracture or dislocation is evident. Joint spaces appear maintained. There is mild spurring about the 2nd distal interphalangeal joint. XR/XR hand LT min 3V IMPRESSION: Healing fracture of the left 5th proximal phalanx without change in alignment identified.
== END 2022-04-11 12:41 | disposition home or self-care (01) ==
LOC: HO.HOSX 12:40
PROVIDERS: PCP Internal Medicine; Visit Provider Orthopaedic Surgery
DX: S62.607D Fracture of unspecified phalanx of left little finger, subsequent encounter for fracture with routine healing (principal); L02.511 Cutaneous abscess of right hand
CPT/HCPCS: 73130

== ENCOUNTER 2023-10-09 13:41 | Outpatient (AMB) | payer OTHER, SELFPAY ==
--- NOTE | 2023-10-09 14:01 | MHC.PC.OV ---
Vital Signs 10/09/23 14:11 Height 4 ft 10.66 in Weight 150 lb 8 oz BMI 30.7 BP 114/70 Blood Pressure Location Lt brachial Position Sitting Respiration 12 Pulse 78 Pulse Source Pulse Oximeter Temp 98.5 F Temp Source Oral Pulse Oximetry (%) 98 Oxygen Delivery Method Room Air Intake Visit Reasons: Establish Care Intake Note: New patient visit [employer] Administrator Required: No Allergies meperidine [Demerol] Adverse Reaction (Unknown, Verified 10/09/23 14:02) N/V Medication List - Last Reconciled 10/09/23 by Parvin Medeiros PA-C azelastine-fluticasone 137-50 mcg/spray 1 spray intranasal BID baclofen 5 mg PO DAILY Bifidobacterium infantis (Align) 4 mg PO DAILY calcium acetate-magnesium carb 450-200 mg tabs PO cetirizine 10 mg PO DAILY cholecalciferol (vitamin D3) 250 mcg PO DAILY gabapentin 100 mg PO BID multivitamin 1 tab PO DAILY sumatriptan succinate take 1 tab at onset of headache; if no relief may repeat 1 tab after at least 2 hrs; max = 4 tabs/24 hr PO Tobacco use date assessed: 10/09/23 Dental Screening Dental Screen Date: 10/09/23 Did you have a dental visit in the last 12 months?: No Did you have a dental problem in the last 6 months where you did not have access to dental care?: No Was dental information given to patient?: Patient has dentist HPI Establish Care HPI Details Patient is a 53-year-old female with a significant past medical history of asthma, hyperlipidemia, cvid, hypothyroidism, migraines, liver hemangioma, ckd presenting today to establish care. Endo: States that her Nhan's is managed by [employer]. She followed with [facility]. CV: Blood pressure today in the office is 114/70. Believes her cholesterol is good since being on a healthy diet. Neuro: Migraines are managed with sumatriptan as needed. She avoids nightshade plants, chocolate, caffeine. Immunology: following [facility] and just saw last week. She is on Zyrtec, Nasacort and Hizentra infusion. She states that her CVA ID was diagnosed after having shingles for 9 years consistently. She ended up having post herpetic neuralgia and has been on gabapentin since that time. She is on 100 mg twice a day. Mammogram: follows at [facility] Pap: Follows with [facility] Colonoscopy: Booked next week with [facility] [place] Bone density: overdue [facility] Medical History (Updated 10/09/23 @ 14:34 by Parvin Medeiros PA-C) Nhan's disease COVID-19 Abscess of right middle finger CVID (common variable immunodeficiency) Arthritis Shingles Annual physical exam Liver hemangioma Abnormal colonoscopy Migraine Normal Pap smear Osteoarthritis Vitamin D deficiency Hyperlipidemia Shoulder pain Seasonal allergic reaction Asthma Surgical History History of microdiscectomy History of tubal ligation Family History (Updated 10/09/23 @ 14:15 by Shantel Bonds CMA) Father HTN (hypertension) Alcohol abuse Mother Alcohol abuse Brother No problems noted. Brother No problems noted. Sister No problems noted. Son No problems noted. Son No problems noted. Daughter No problems noted. 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 1. Little interest or pleasure in doing things: not at all 2. Feeling down, depressed, or hopeless: not at all 3. Trouble falling or staying asleep, or sleeping too much: not at all 4. Feeling tired or having little energy: several days 5. Poor appetite or overeating: not at all 6. Feeling bad about yourself - or that you are a failure or have let yourself or your family down: not at all 7. Trouble concentrating on things, such as reading the newspaper or watching television: not at all 8. Moving or speaking so slowly that other people could have noticed. Or the opposite - being so fidgety or restless that you have been moving around a lot more than usual: not at all 9. Thoughts that you would be better off or of hurting yourself in some way: not at all Total score: 1 Depression Screening Interpretation: Negative Depression Screening Done: Yes 91819 - PHQ-9 Billing: Yes Source: Developed by Drs. Alfie Doran, Georgia Novak, Ayan Cochran and colleagues, with an educational michael from [employer]. Thrive Questionnaire Date Thrive assessed: 10/09/23 I am a: Patient What is your living situation today?: I have a steady place to live Within the past 12 months, did the food you bought not last and you didn't have the money to get more?: Never true Within the past 12 months, did you worry whether your food would run out before you got money to buy more?: Never true Do you have trouble paying for medicines?: No Do you have trouble getting transportation to medical appointments?: No Do you have trouble paying your heating and electricity bill?: No Do you have trouble taking care of your child, family member or friend?: No Do you have trouble with day-to-day activities such as bathing, preparing meals, shopping, managing finances, etc.?: No Are you currently unemployed and looking for a job?: No Are you interested in more education?: No Please select the resources that you would like help with: None Currently or been in a relationship where the following occur: no concerns reported THRIVE Score: 0 AUDIT C Alcohol Use Questionnaire (AUDIT-C) 1. How often do you have a drink containing alcohol?: Monthly or less 2. How many drinks containing alcohol do you have on a typical day when you are drinking?: 1 or 2 3. How often do you have six or more drinks on one occasion?: Never Total Score: 1 WES-7 AMB Questionnaire WES-7 Date WES - 7 assessed: 10/09/23 Feeling nervous, anxious, or on edge: 0 = Not at all Not being able to stop or control worryin = Not at all Worrying too much about different things: 0 = Not at all Trouble relaxin = Not at all Being so restless that it is hard to sit still: 0 = Not at all Becoming easily annoyed or irritable: 0 = Not at all Feeling afraid as if something awful might happen: 0 = Not at all Total WES-7 score (0-4 normal; 5-9 mild; 10-14 moderate; 15-21 severe): 0 Source: Developed by Drs. Alfie Doran, Georgia Novak, Ayan Cochran and colleagues, with an educational michael from [employer]. WES-7 Assessment Billing WES-7 Assessment Tool: WES-7 Assessment 79107 Physical exam (Primary Care) Vital Signs: Last Vital Signs Temp 98.5 F 10/09/23 14:11 Pulse 78 10/09/23 14:11 Resp 12 10/09/23 14:11 BP 114/70 10/09/23 14:11 Pulse Ox 98 10/09/23 14:11 Oxygen Delivery Method Room Air 10/09/23 14:11 BMI result Body Mass Index 30.7 Tobacco/Smoking Status: Tobacco use Status Patient Tobacco Use Status Never used Tobacco 10/09/23 14:14 Depression Screening Interpretation: Negative Currently or been in a relationship where the following occur: no concerns reported Const Orientation/consciousness: patient oriented x3 HENMT Ears: hearing grossly normal bilaterally Neck Thyroid: Thyroid normal Lymphatic: no lymphadenopathy noted Resp Auscultation: clear to auscultation bilaterally Cardio Rate: regular rate Rhythm: regular rhythm Heart sounds: S1 normal heart sound present and S2 normal heart sound present GI Inspection: Yes normal to inspection Palpation (GI): Soft to palpation and Other GI palpation findings present (nontender, no cva tenderness) Auscultation: normoactive bowel sounds Rectal Exam - Female: deferred Skin General skin exam: no rashes or lesions noted Neuro General: patient oriented x3, gait normal and no focal motor deficits Results Reviewed Results Reviewed: Laboratory Tests 09/28/19 10/09/19 09/10/20 07:50 09:49 07:28 Sodium Potassium Chloride Carbon Dioxide Anion Gap Creatinine Estim Creat Clear Calc Est GFR (Non-Af Amer) 45 > 60 Estimated GFR Random Glucose AST ALT Triglycerides 71 Cholesterol 263 LDL Cholesterol, Calc 166 HDL Cholesterol 83 02/17/22 15:26 Sodium 142 Potassium 4.2 Chloride 104 Carbon Dioxide 26 Anion Gap 16 Creatinine 1.04 Estim Creat Clear Calc 54.2 Est GFR (Non-Af Amer) Estimated GFR 56 Random Glucose 97 AST 29 ALT 33 H Triglycerides Cholesterol LDL Cholesterol, Calc HDL Cholesterol Assessment and Plan Assessment & Plan (1) Hyperlipidemia: Code(s): E78.5 - Hyperlipidemia, unspecified Qualifiers: Hyperlipidemia type: mixed hyperlipidemia Qualified Code(s): E78.2 - Mixed hyperlipidemia Plan: will check lipids today. 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 Patient understands and agrees with the plan. Orders: Orders Lipid Panel Today D83.9 - Common variable immunodeficiency, unspecified, E78.5 - Hyperlipidemia, unspecified, N28.9 - Disorder of kidney and ureter, unspecified TSH reflex Free T4 Today D83.9 - Common variable immunodeficiency, unspecified, E78.5 - Hyperlipidemia, unspecified, N28.9 - Disorder of kidney and ureter, unspecified Comprehensive [place]. Panel Fast Today D83.9 - Common variable immunodeficiency, unspecified, E78.5 - Hyperlipidemia, unspecified, N28.9 - Disorder of kidney and ureter, unspecified Complete Blood Count Auto Diff Today D83.9 - Common variable immunodeficiency, unspecified, E78.5 - Hyperlipidemia, unspecified, N28.9 - Disorder of kidney and ureter, unspecified Vitamin B12 and Folate Today D83.9 - Common variable immunodeficiency, unspecified, E78.5 - Hyperlipidemia, unspecified, N28.9 - Disorder of kidney and ureter, unspecified Medications: New baclofen 5 mg PO DAILY 90 days 90 tabs 2RF sumatriptan succinate take 1 tab at onset of headache; if no relief may repeat 1 tab after at least 2 hrs; max = 4 tabs/24 hr PO 10 tabs 2RF Changed From gabapentin 100 mg PO BID To gabapentin 100 mg PO BID 90 days 180 caps 3RF Coding Level of Care Code New Pt Level 4 (46409) Complex EM visit Add On G2211 Diagnoses Mixed hyperlipidemia E78.2 Hyperlipidemia type: mixed hyperlipidemia Decreased renal function N28.9 CVID (common variable immunodeficiency) D83.9 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 Additional Codes WES-7 Assessment Billing - WES-7 Assessment Tool: WES-7 Assessment [id number] ([id number])
[2023-10-09 14:11] VITALS: BP 114/70; PULSE 78; RESP 12; TEMP 36.9; O2SAT 98; BMI 30.7
== END 2023-10-09 15:27 | disposition home or self-care (01) ==
PROVIDERS: PCP Internal Medicine; Visit Provider Physician Assistant
DX: E78.2 Mixed hyperlipidemia (principal); N28.9 Disorder of kidney and ureter, unspecified; D83.9 Common variable immunodeficiency, unspecified; E06.3 Autoimmune thyroiditis
CPT/HCPCS: 99204; G2211

== ENCOUNTER 2023-10-23 14:29 | Outpatient (AMB) | payer OTHER, SELFPAY ==
--- NOTE | 2023-10-23 14:32 | AM.OFFWIN_ITS ---
Intake Vital Signs 3 10/23/23 14:34 Height 4 ft 10 in Weight 156 lb BMI 32.6 BP 120/72 Blood Pressure Location Rt brachial Position Sitting Pulse 72 Pulse Source Pulse Oximeter Temp 98.5 F Temp Source Oral Pulse Oximetry (%) 98 Intake Visit Reasons: Bug Bite left forearm Intake Note: pt is here for bug bite on left forearm Patient Tobacco Use Status: Never used Tobacco Allergies meperidine [Demerol] Adverse Reaction (Unknown, Verified 10/09/23 14:02) N/V Medication List - Last Reconciled 10/23/23 by Nneka Blair MD azelastine-fluticasone 137-50 mcg/spray 1 spray intranasal BID baclofen 5 mg PO DAILY 90 days Bifidobacterium infantis (Align) 4 mg PO DAILY calcium acetate-magnesium carb 450-200 mg tabs PO cetirizine 10 mg PO DAILY cholecalciferol (vitamin D3) 250 mcg PO DAILY gabapentin 100 mg PO BID 90 days multivitamin 1 tab PO DAILY sumatriptan succinate take 1 tab at onset of headache; if no relief may repeat 1 tab after at least 2 hrs; max = 4 tabs/24 hr PO Do you need a note to return to daycare/school/sports/work: Yes HPI Bug Bite left forearm 2 HPI0 Details Patient is a 53-year-old female came in today to be evaluated for skin infection that she encountered after having a bug bite and scratching over it Left forearm On examination patient has developed erythema over the bite with central skin excoriation due to scratching Review system is negative for fever chills I am treating her with doxycycline 100 mg b.i.d. for 5 days. [facility] Medical History Nhan's disease COVID-19 Abscess of right middle finger CVID (common variable immunodeficiency) Arthritis Shingles Annual physical exam Liver hemangioma Abnormal colonoscopy Migraine Normal Pap smear Osteoarthritis Vitamin D deficiency Hyperlipidemia Shoulder pain Seasonal allergic reaction Asthma Surgical History History of microdiscectomy History of tubal ligation Family History Father HTN (hypertension) Alcohol abuse Mother Alcohol abuse Brother No problems noted. Brother No problems noted. Sister No problems noted. Son No problems noted. Son No problems noted. Daughter No problems noted. 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 Current occupational exposures/hazards: No Cognitive needs: No Hearing needs: No Vision needs: No Review of Systems Const All systems reviewed & are unremarkable except as noted in HPI and below Physical Exam Vital Signs: Last Vital Signs Temp 98.5 F 10/23/23 14:34 Pulse 72 10/23/23 14:34 BP 120/72 10/23/23 14:34 Pulse Ox 98 10/23/23 14:34 BMI result Body Mass Index 32.6 Const General: no acute distress Orientation/consciousness: patient oriented x3 Eyes General: appearance normal, both eyes and all related structures Resp Effort & Inspection: normal respiratory effort and able to speak in complete sentences Skin Full body images: 2 1. Site of bite in infection Neuro General: patient oriented x3 Psych Mental Status: mental status grossly normal Assessment & Plan Assessment & Plan (1) Skin infection: Code(s): L08.9 - Local infection of the skin and subcutaneous tissue, unspecified Plan Patient is a 53-year-old female came in today to be evaluated for skin infection that she encountered after having a bug bite and scratching over it Left forearm On examination patient has developed erythema over the bite with central skin excoriation due to scratching Review system is negative for fever chills I am treating her with doxycycline 100 mg b.i.d. for 5 days. Tetanus is up-to-date as per patient Medications: New 2 doxycycline hyclate 100 mg PO BID 5 days 10 caps 0RF Coding Level of Care Code Est Pt Level 3 (17243) Diagnoses Skin infection L08.9
[2023-10-23 14:34] VITALS: BP 120/72; PULSE 72; TEMP 36.9; O2SAT 98; BMI 32.6
== END 2023-10-23 18:04 | disposition home or self-care (01) ==
PROVIDERS: PCP Internal Medicine; Visit Provider Internal Medicine
DX: L08.9 Local infection of the skin and subcutaneous tissue, unspecified (principal)
CPT/HCPCS: 99213

== ENCOUNTER 2023-11-21 06:43 | Outpatient (REF) | payer OTHER, SELFPAY ==
[2023-11-21 10:21] LABS: MANUAL DIFF FLAG NO
[2023-11-21 10:26] LABS: Basophils Percent Auto 0.5 % (0-2); Eosinophils Absolute Auto 0.1 X10*3/uL (0.0-0.4); Eosinophils Percent Auto 1.5 % (0-4); Hematocrit 44.5 % (37.0-47.0); Hemoglobin 15.2 g/dl (12.0-16.0); Imm Gran Abs Auto 0.01 X10*3/uL (0.00-0.03); Imm Gran Pct Auto 0.2 % (0.0-0.4); Lymphocytes Absolute Auto 1.3 X10*3/uL (1.2-4.9); Lymphocytes Percent Auto 30.8 % (20-40); Mean Corpuscular HGB Conc 34.2 g/dl (31.0-35.0); Mean Corpuscular Hemoglobin 30.3 pg (27.0-33.0); Mean Corpuscular Volume 88.6 fL (80.0-98.0); Mean Platelet Volume 9.2 fL (9.4-12.3); Monocytes Absolute Auto 0.3 X10*3/uL (0.1-1.2); Monocytes Percent Auto 8.3 % (2-11); Neutrophils Absolute Auto 2.4 x10*3/uL (2.0-8.3); Neutrophils Percent Auto 58.7 % (45-73); Platelet Count 261 X10*3/uL (160-400); Red Blood Count 5.02 X10*6/uL (4.20-5.50); Red Cell Distribution Width 12.8 % (11.0-16.0); White Blood Count 4.1 X10*3/uL (4.8-10.8)
[2023-11-21 10:57] LABS: Alanine Aminotransferase 26 U/L (0-31); Albumin Level 4.4 g/dL (3.5-5.0); Alkaline Phosphatase 73 U/L (39-117); Anion Gap 14 (12-20); Aspartate Amino Transferase 25 U/L (5-31); Bilirubin Total 0.4 mg/dL (0.0-1.0); Blood Urea Nitrogen 22 mg/dL (9-16); Calcium 10.9 mg/dL (8.4-10.2); Carbon Dioxide 27 mmol/L (22-29); Chloride 104 mmol/L (96-108); Cholesterol 289 mg/dL (<200); Estimated Glomerular Filt Rate > 60; Glucose Fasting 114 mg/dL (60-99); HDL Cholesterol 82 mg/dL (>40); LDL Cholesterol Calculated 186 mg/dL (<100); Potassium 4.6 mmol/L (3.3-5.1); Sodium 140 mmol/L (135-145); Total Protein 8.2 g/dL (6.5-8.0); Triglycerides 108 mg/dL (<150)
[2023-11-21 11:00] LABS: TSH reflex Free T4 2.18 uIU/mL (0.32-4.0)
[2023-11-21 11:18] LABS: Folate 13.2 ng/mL (> or = 4.0); Vitamin B12 696 pg/mL (200-900)
== END 2023-11-21 06:44 | disposition home or self-care (01) ==
LOC: HO.HMGCLDS 06:43
PROVIDERS: PCP Physician Assistant; Visit Provider Physician Assistant
DX: E78.5 Hyperlipidemia, unspecified (principal); N28.9 Disorder of kidney and ureter, unspecified; D83.9 Common variable immunodeficiency, unspecified
CPT/HCPCS: 36415; 80053; 80061; 82607; 82746; 84443; 85025

== ENCOUNTER 2023-12-02 06:05 | Outpatient (REF) | payer OTHER, SELFPAY ==
[2023-12-02 11:11] LABS: Anion Gap 15 (12-20); Blood Urea Nitrogen 17 mg/dL (9-16); Calcium 9.7 mg/dL (8.4-10.2); Carbon Dioxide 23 mmol/L (22-29); Chloride 104 mmol/L (96-108); Estimated Glomerular Filt Rate > 60; Glucose Random 105 mg/dL (60-115); Potassium 3.6 mmol/L (3.3-5.1); Sodium 138 mmol/L (135-145)
[2023-12-02 11:18] LABS: Estimated Average Glucose 97 mg/dL
== END 2023-12-02 06:06 | disposition home or self-care (01) ==
LOC: HO.HMGCLDS 06:05
PROVIDERS: PCP Physician Assistant; Visit Provider Physician Assistant
DX: R73.01 Impaired fasting glucose (principal); E83.52 Hypercalcemia
CPT/HCPCS: 36415; 80048; 83036

== ENCOUNTER 2024-06-03 06:05 | Outpatient (REF) | payer OTHER, SELFPAY ==
--- OUTSIDE RECORDS SUMMARY | 2024-06-03 06:08 | XMS_ITS | Patient Health Record ---
Author Organization [facility] [employer] Address [address] [place] [phone] Care Team Providers Care Specialty Person Name Role Phone AMY TATE Primary Care Provider ALLERGIES Allergen (clinical drug ingredient) Drug/Non Drug Allergy documented on EMR Reaction Allergy Type Onset Date Status meperidine Demerol stomach upset Drug Allergy Ac tive atorvastatin Atorvastatin heart palpitations Drug Allergy Active REASON FOR REFERRAL No Information MEDICATIONS Medication SIG (Take, Route, Frequency, Duration) Notes Start Date End Date Status Albuterol Sulfate HFA 108 (90 Base) MCG/ACT 1 puff as needed Inhalation every 4 hrs Active Flonase Allergy Relief 50 MCG/ACT 1 spray in each nostril Nasally Once a day Active ZyrTEC Allergy 10 MG 1 tablet Orally Once a day Active Gabapentin 100 MG TAKE 1 CAP ORALLY TWICE DAILY DIRECTED Orally Once a day for 90 days Active SUMAtriptan Succinate 50 MG Take 1 tab orally once as needed at first sign of migraine, may repeat dose x1 if no improvement in 60 minutes Oral SUMAtriptan 50 mg tablet 11/06/2021 Active Hizentra 7grm 1/weekly Active Ursodiol 300 MG 1 capsule Orally Twice a day for 90 days 07/04/2022 Active Magnesium Citrate 250-300mg daily Active Multi Vitamin - 1 tablet Orally Once a day Active SOCIAL HISTORY Tobacco Use: Social History Observation Description Date Details (start date - stop date) Never Smoker NA - NA Sex Assigned At : Social History Observation Description Sex Assigned At Unknown Tobacco Use/Smoking Question Answer Notes Tobacco use: nonsmoker Section Notes: Lives in [place], [place] with b oyfriend & 2 children Lives in [place], [place] with b oyfriend & 2 children Lives in [place], [place] with b oyfriend & 2 children Lives in [place], [place] with b oyfriend & 2 children Lives in [place], [place] with b oyfriend & 2 children PROBLEMS Problem Type ICD Code Onset Dates Problem Status W/U Status Risk SNOMED Code Notes Problem Familial hypercholesterolemia (E78.01) Active confirmed Familial hypercholesterolemia (635114854) Problem Hypercholesteremia (E78.00) Active confirmed hypercholestero lemia (disorder) (40325940) Problem Non-alcoholic fatty liver disease (K76.0) Active confirmed Non-al coholic fatty liver disease (1512069962) VITAL SIGNS Heart Rate 82 /min 06/05/2023 Height-cm 151.13 cm 06/05/2023 Oximetry 96 % 06/05/2023 Blood pressure diastolic 92 mm Hg 06/05/2023 Weight-kg 68.04 kg 06/05/2023 Height 59.5 in 06/05/2023 Blood pressure systolic 140 mm Hg 06/05/2023 Weight 150 lbs 06/05/2023 BMI 29.79 kg/m2 06/05/2023 Encounters Encounter Location Date Provider Diagnosis [address] [id number] 10/21/2023 AMY TATE [address] [id number] 06/05/2023 AMY TATE Annual visit for general adult medical examination with abnormal findings Z00.01 ; Depression screen Z13.31 ; Encounter for screening for other disorder Z13.89 ; Encounter for screening for malignant neoplasm of colon Z12.11 ; Encounter for screening for cardiovascular disorders Z13.6 ; Encounter for screening mammogram for malignant neoplasm of breast Z12.31 ; Encounter for screening for malignant neoplasm of cervix Z12.4 ; Acute sinusitis, recurrence not specified, unspecified location J01.90 and Fatty liver K76.[address] [id number] 08/14/2023 AMY TATE ASSESSMENTS Encounter Date Diagnosis Assessment Notes Treatment Notes Treatment Clinical Notes Section Notes 06/05/2023 Annual visit for general adult medical examination with abnormal findings (ICD-10 - Z00.01) The exam today was without concern. Labs ordered, f/u with results in October. We discussed short and long-term health goals. The exam today was without concerns, states feel safe at home. Reports having working CO2 and Smoke detectors. Encouraged to wear sunscreen. Reports wearing a seatbelt when driving or as a passenger. Encourage regular exercise of moderate intensity 30 min 5x/week. 06/05/2023 Depression screen (ICD-10 - Z13.31) PHQ9 Score: 2 Low risk for major depressive disorder 06/05/2023 Encounter for screening for other disorder (ICD-10 - Z13.89) CAGE Questions Adapted to Include Drug Use (CAGE-AID) 1. Have you ever felt you ought to cut down on your drinking or drug use? N 2. Have people annoyed you by criticizing your drinking or drug use? N 3. Have you felt bad or guilty about your drinking or drug use? N 4. 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 N Total Score: 0 Scoring: Item responses on the CAGE questions are scored 0 for no and 1 for yes answers, with a higher score being an indication of alcohol problems. A total score of two or greater is considered clinically significant. 06/05/2023 Encounter for screening for malignant neoplasm of colon (ICD-10 - Z12.11) Colon cancer screening options reviewed in detail. Schedule colonoscopy for colorectal cancer screening. Telephone call with GI in July 2023 to schedule colonoscopy 06/05/2023 Encounter for screening for cardiovascular disorders (ICD-10 - Z13.6) EKG: Rhythm: sinus, [place]: normal, P waves: visible, TN interval: WNL, QRS dur: WNL, QT: WNL, ST segment: no pathological findings, T waves: no pathological findings No evidence of ischemic changes 06/05/2023 Encounter for screening mammogram for malignant neoplasm of breast (ICD-10 - Z12.31) Patient Education was given regarding breast mass and breast pain. Self breast examination was discussed. Assessment and plan reviewed with patient. UTD on mammogram (October 2022) 06/05/2023 Encounter for screening for malignant neoplasm of cervix (ICD-10 - Z12.4) Pap not done at patient's request, seeing outpt PATTERN MARKER in June 2023 06/05/2023 Acute sinusitis, recurrence not specified, unspecified location (ICD-10 - J01.90) Doxycycline ordered. Encourage hydration, humidification. Can continue with Netti Pot as needed, educated on using cooled, previously boiled water or distilled water. 06/05/2023 Fatty liver (ICD-10 - K76.0) Restart ursidiol and tarte foreman 06/05/2023 Monica Valle BSN, TOOL ENGINEER student saw the patient and formulated the note under direct supervision of Dr. Amy Tate, DNP. PLAN OF TREATMENT Pending Test Test Name Order Date Colonoscopy 06/04/2022 MAMMOGRAM, SCREENING 06/04/2022 SARS COV2/INFLUENZA A/B AND RSV RNA QL N AAT ([id number]) 11/14/2022 Insurance Providers Payer Name Payer Address Payer Phone Subscriber Number Group Number Insured Name Patient Relationship to Insured Coverage Start Date Coverage End Date [address], [place] [phone] [id number] NATHEN WHEELER Self - patient is the insured MEDICAL (GENERAL) HISTORY Medical History History ICD Code Cellulitis-hand Severe headaches, migraines Sinus infections Wears glasses/contacts Surgical History Surgery Date(Month/Year) Tubal ligation Tonsillectomy Back surgery-discectomy of L4-L5
--- OUTSIDE RECORDS SUMMARY | 2024-06-03 06:08 | XMS_ITS ---
Author Organization [facility], [facility] Address [address] [place] [phone] Care Team Providers Care Patient Care Assistant Name Role Phone AMY DOSS Primary Care Provider [phone] REASON FOR VISIT Refills Encounters Encounter Location Date Provider Diagnosis [address] [id number] 08/14/2023 AMY DOSS PLAN OF TREATMENT No Information Progress Notes * NATHEN WHEELER MDOB:1970 (53 yo F)Acc No.[id number]:08/14/2023 Patient:??NATHEN WHEELER :1970?Age:53 Y?Sex:Fe male Phone: Address:[address] [place] [address] [place] [id number] * true * Date:??
--- OUTSIDE RECORDS SUMMARY | 2024-06-03 06:08 | XMS_ITS ---
Author Organization [facility] Address [address] [place], [place] [id number] Care Team Providers Care Lending Activities Supervisor Name Role Phone AMY TATE Primary Care Provider REASON FOR VISIT f/u labs Encounters Encounter Location Date Provider Diagnosis [address] [id number] 10/21/2023 AMY TATE PLAN OF TREATMENT No Information Progress Notes * NATHEN WHEELER MDOB:1970 (54 yo F)Acc No.[id number]:10/21/2023 Progress Notes Patient:??NATHEN WHEELER Provider:??Amy Tate DNP :1970?Age:53 Y?Sex:Fe male Date:10/21/2023 Phone: Address:[address] [place], [place] [id number] Subjective: * Chief Complaints: * ?1. F/u labs. * Medical History:?? Objective: Assessment: Plan: * Treatment: * Billing Information: * Visit Code:?? * Procedure Codes:?? * Sign off status: Pending * Provider:??Amy Tate DNP Date:??0 10/21/2023
--- OUTSIDE RECORDS SUMMARY | 2024-06-03 06:08 | XMS_ITS ---
Author Organization [employer] 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 Name Role Phone BRISEYDA TATE Primary Care Provider [phone] ALLERGIES Allergen (clinical drug ingredient) Drug/Non Drug Allergy documented on EMR Reaction Allergy Type Onset Date Status meperidine Demerol stomach upset Drug Allergy Ac tive atorvastatin Atorvastatin heart palpitations Drug Allergy Active REASON FOR VISIT CPE/EKG MEDICATIONS Medication SIG (Take, Route, Frequency, Duration) Notes Start Date End Date Status Flonase Allergy Relief 50 MCG/ACT 1 spray [...] tablet 11/06/2021 Active Hizentra 7grm 1/weekly Active Albuterol Sulfate HFA 108 (90 Base) MCG/ACT 1 puff as needed Inhalation every 4 hrs Active Doxycycline Monohydrate 100 MG 1 capsule Orally every 12 hrs for 14 days 06/05/2023 06/19/2023 Active Ursodiol 300 MG 1 capsule Orally [...] Tobacco use: nonsmoker Section Notes: Lives in [place], [place] with b oyfriend & 2 children VITAL SIGNS Blood pressure systolic 140 mm Hg 06/05/19 24 Blood pressure diastolic 92 mm Hg 024 Heart Rate 82 /min 06/05/2023 Height 59.5 in 06/05/2023 Weight 150 lbs 06/05/2023 BMI 29.79 kg/m2 06/05/2023 Oximetry 96 % 06/05/2023 Height-cm 151.13 cm 06/05/2023 Weight-kg 68.04 kg 06/05/2023 Encounters Encounter Location Date Provider Diagnosis [address] [phone] 06/05/2023 BRISEYDA TATE Annual visit for general adult medical [...] unspecified location J01.90 and Fatty liver K76.0 ASSESSMENTS Encounter Date Diagnosis Assessment Notes Treatment [...] or to get rid of a hangover (eye-leather flesher)? N Total Score: 0 Scoring: Item responses [...] disorders (ICD-10 - Z13.6) EKG: Rhythm: sinus, [place]: normal, P waves: visible, ME interval: WNL, QRS dur: WNL, QT: WNL, [...] not done at patient's request, seeing outpt ASSISTANT CURATOR in June 2023 06/05/2023 Acute sinusitis, recurrence not specified, unspecified location (ICD-10 - J01.90) Doxycycline ordered. Encourage hydration, humidification. Can continue with Netti Pot as needed, educated on using cooled, previously boiled water or distilled water. 06/05/2023 Fatty liver (ICD-10 - K76.0) Restart ursidiol and tarte foreman 06/05/2023 Monica Valle BSN, COSMETIC MANAGER student saw the patient and formulated the note under direct supervision of Dr. Briseyda Tate, DNP. PLAN OF TREATMENT Medication Medication Name Sig Start Date Stop Date Notes Doxycycline Monohydrate 100 MG 1 capsule Orally every 12 hrs for 14 days 06/05/2023 06/19/2023 Ursodiol 300 MG 1 capsule Orally Twi ce a day for 90 days 07/04/2022 Treatment Notes Assessment Notes Annual visit for general silvano lt medical examination with abnormal findings The exam today was without concern. Labs ordered, f/u with results in October. We discussed short and long-term health goals. The exam today was without concerns, states feel safe at home. Reports having working CO2 and Smoke detectors. Encouraged to wear sunscreen. Reports wearing a seatbelt when driving or as a passenger. Encourage regular exercise of moderate intensity 30 min 5x/week. Depression screen PHQ9 Score: 2 Low risk for major depressive disorder Encounter for screening for other disord er CAGE Questions Adapted to Include Drug Use [...] or to get rid of a hangover (eye-leather flesher)? N Total Score: 0 Scoring: Item responses on the CAGE questions are scored 0 for no and 1 for yes answers, with a higher score being an indication of alcohol problems. A total score of two or greater is considered clinically significant. Encounter for screening for malignant neoplasm of colon Colon cancer screening options reviewed in detail. Schedule colonoscopy for colorectal cancer screening. Telephone call with GI in July 2023 to schedule colonoscopy Encounter for screening for cardiovascular disorders EKG: Rhythm: sinus, [place]: normal, P waves: visible, ME interval: WNL, QRS dur: WNL, QT: WNL, ST segment: no pathological findings, T waves: no pathological findings No evidence of ischemic changes Encounter for screening mamm ogram for malignant neoplasm of breast Patient Education was given regarding breast mass and breast pain. Self breast examination was discussed. Assessment and plan reviewed with patient. UTD on mammogram (October 2022) Encounter for screening for malignant neoplasm of cervix Pap not done at patient's request, albaro augustin outpt ASSISTANT CURATOR in June 2023 Acute sinusitis, recurrence not specified, unspecified location Doxycycline ordered. Encourage hydration , humidification. Can continue with Netti Pot as needed, educated on using cooled, previously boiled water or distilled water. Fatty liver Restart ursidiol and tarte foreman Monica Valle, COSMETIC MANAGER student saw the patient and formulated the note under direct supervision of Dr. Briseyda Tate DNP. Next Appt Details Follow Up: October, Reason: f/u Labs ([facility]) Progress Notes * CRISTIANNATHEN GÓMEZ MDOB:1970 (53 yo F)Acc No.[id number]:06/05/2023 Progress Note Patient:??NATHEN WHEELER Provider:??Briseyda Tate DNP :1970?Age:53 Y?Sex:Fe male Date:06/05/2023 Phone: Address:[address] [place] [address] [place], [id number] Subjective: * Chief Complaints: * ?CPE/EKG * HPI: ?Patient Care Team:?Bear Keeper:??[facility] - Dr. Mays.? Providers/Specialists: OBGYN - Maria Esther Tran MA - Allergy/Risk Compliance Analyst - Dr. Susan Reynolds. ?Visit info:? Patient presents in the office for her annual physical. Patient has an appointment with OBGYN in June 2023 for her annual pap. Patient had mammogram ion 10/2022 it was normal. Patient has phone visit scheduled with Gastroenterology on July 15 to discuss having colonoscopy - over due by 3 years. Patient thinks she may have a sinus infection. Patient has been doing the Neti pot, but it is not getting any better. * ROS:?General / Constitutional:?Patient denies??fatigue, headache, lightheadedness, weakness.?Ophthalmologic:?Patient denies??blurry vision, change in vision, eye pain.?ENT:?Patient denies??decreased hearing, difficulty in swallowing, dry mouth, ear pain, sore throat.??Patient complains of??nasal congestion, sinus pain.?Respiratory:?Patient denies??chest pain, cough, shortness of breath.?Cardiovascular:?Patient denies??dizziness, irregular heartbeat, palpitations, weakness.?Gastrointestinal:?Patient denies??abdominal pain, blood in stool, heartburn.?Genitourinary:?Patient denies??blood in the urine, difficulty urinating, frequent urination.?Musculoskeletal:?Patient denies??leg swelling, neck pain.?Neurologic:?Patient denies??low back pain, tingling / numbness, tremor.?Psychiatric:?Patient denies??anxiety, depressed mood, difficulty sleeping, substance abuse.? * Medical History:?? 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 * OB History:? History:?Total pregnancies:??3 ?Full-term pregnancies:??3 * Surgical History:??Tubal lig ation Tonsillectomy Back surgery-discectomy of L4-L5 * Ocular Surgical History:?? * Hospitalization/Major Diagno stic Procedure:?? * Family History:??Father: adrianna boland, No known health concern.??Mother: alive, Hypertension , Fibromyalgia , sleep apnea .??Brother: alive, No known health concerns.??Sister: alive, Fibromyalgia, Rheumatoid Arthritis, Thyroid disease.?? * Social History:?Tobacco Use:?Tobacco Use/Smoking?Tobacco use:??nonsmoker ?Drugs/Alcohol:?Do you drink alcohol?: Yes, Occasionally. ?Lives in [place], [place] with boyfriend & 2 children. * Medications:??TakingAlbutero l Sulfate HFA 108 (90 Base) MCG/ACT Aerosol Solution 1 puff as needed Inhalation every 4 hrs Multi Vitamin - Tablet 1 tablet Orally Once a day Magnesium Citrate , Notes to Pharmacist: 250-300mg dailyHizentra , Notes to Pharmacist: 7grm 1/weeklyZyrTEC Allergy 10 MG Tablet 1 tablet Orally Once a day Flonase Allergy Relief 50 MCG/ACT Suspension 1 spray in each nostril Nasally Once a day SUMAtriptan Succinate 50 MG Tablet Take 1 tab orally once as needed at first sign of migraine, may repeat dose x1 if no improvement in 60 minutes Oral , Notes to Pharmacist: SUMAtriptan 50 mg tabletGabapentin 100 MG Capsule TAKE 1 CAP ORALLY TWICE DAILY DIRECTED Orally Once a day Taking Albuterol Sulfate HFA 108 (90 Base) MCG/ACT Aerosol Solution 1 puff as needed Inhalation every 4 hrs Taking Multi Vitamin - Tablet 1 tablet Orally Once a day Taking Magnesium Citrate , Notes to Pharmacist: 250-300mg dailyTaking Hizentra , Notes to Pharmacist: 7grm 1/weeklyTaking ZyrTEC Allergy 10 MG Tablet 1 tablet Orally Once a day Taking Flonase Allergy Relief 50 MCG/ACT Suspension 1 spray in each nostril Nasally Once a day Taking SUMAtriptan Succinate 50 MG Tablet Take 1 tab orally once as needed at first sign of migraine, may repeat dose x1 if no improvement in 60 minutes Oral , Notes to Pharmacist: SUMAtriptan 50 mg tabletTaking Gabapentin 100 MG Capsule TAKE 1 CAP ORALLY TWICE DAILY DIRECTED Orally Once a day Not-TakingUrsodiol 300 MG Capsule 1 capsule Orally Twice a day Medication List reviewed and reconciled with the patientNot- Taking Ursodiol 300 MG Capsule 1 capsule Orally Twice a day Medication List reviewed and reconciled with the patient * Allergies:??Demerol: stomach upset - AllergyAtorvastatin: heart palpitations - Side Effects - Criticality High Objective: * Vitals:??BP:140/92mm Hg, HR: 82/min, Oxygen sat %:96%, Wt:150lbs, Wt-k.04 kg, Ht: 59.5 in, Ht-cm: 151.13 cm, BMI:29.79Index, Body Surface Area: 1.69. * Examination: ?General Examination: ?General appearance:??alert, pleasant, well-nourished and in no acute distress .?Head:??normocephalic, atraumatic .?Eyes:??normal, pupils equal, round, reactive to light and accommodation, extraocular movement intact (EOMI) .?Ears:??normal, auditory canal clear, tympanic membrane intact and clear, light reflex present .?Nose:??nares patent, septum intact,?maxillary sinus tenderness bilaterally.?Oral cavity:??with good dentition, mucosa moist, tongue is midline .?Throat:??clear, pharynx normal, uvula midline .?Neck / thyroid:??carotid pulses are normal and without bruits, neck is supple, with full range of motion and no cervical lymphadenopathy .?Lymph nodes:??no axillary, supraclavicular or inguinal lymphadenopathy, no cervical lymphadenopathy .?Skin:??skin is warm and dry, with no rashes, good skin turgor and normal hair distribution .?Heart:??regular rate and rhythm without murmurs, gallops, clicks or rubs .?Lungs:??clear to auscultation bilaterally, with good air movement and no rales, rhonchi or wheezes .?Chest:??chest wall with no costochondral junction tenderness, no rib deformity and normal shape and expansion .?Breasts:??breast exam is normal without lesions or masses, discharge or erythema .?Abdomen:??soft with good bowel sounds, nontender, and no masses or hepatosplenomegaly .?Back:??normal, without kyphoscoliosis or tenderness, full range of motion without difficulty .?Musculoskeletal:??FROM, no point tenderness.?Extremities:??normal extremity with no clubbing, cyanosis or edema, full range of motion, good capillary refill in nail beds .?Peripheral pulses:??normal 2+ arterial pulses .?Neurologic:??alert and oriented, cognitive exam grossly normal, cranial nerves 2-12 grossly intact, deep tendon reflexes 2+ symmetrical, gait normal, normal upper and lower extremity motor strength and function .?Psych:??cooperative with exam, maintains good eye contact, normal affect/mood .? Assessment: * Assessment: 1.??Annual visit for general adult medical examination with abnormal findings - Z00.01 (Primary)??2.??Depression screen - Z13.31??3.??Encounter for screening for other disorder - Z13.89??4.??Encounter for screening for malignant neoplasm of colon - Z12.11??5.??Encounter for screening for cardiovascular disorders - Z13.6??6.??Encounter for screening mammogram for malignant neoplasm of breast - Z12.31??7.??Encounter for screening for malignant neoplasm of cervix - Z12.4??8.??Acute sinusitis, recurrence not specified, unspecified location - J01.90??9.??Fatty liver - K76.0?? Plan: * Treatment: 2.??Depression screen?? Notes: PHQ9 Score: 2 Low risk for major depressive disorder? 3.??Encounter for screening for other disorder?? Notes: CAGE Questions Adapted to Include Drug Use [...] drugs first thing in the morning to steadyyour nerves or to get rid of a hangover (eye-leather flesher)? N Total Score: 0Scoring: Item responses on the CAGE questions are scored 0 for no and 1 for yes answers, with a higher score being an indication of alcohol problems. A total score oftwo or greater is considered clinically significant.? 4.??Encounter for screening for malignant neoplasm of colon?? Notes: Colon cancer screening options reviewed in detail. Schedule colonoscopy for colorectal cancer screening. Telephone call with GI in July 2023 to schedule colonoscopy ? 5.??Encounter for screening for cardiovascular disorders?? Notes: EKG: Rhythm: sinus, [place]: normal, P waves: visible, ME interval: WNL, QRS dur: WNL, QT: WNL, ST segment: no pathological findings, T waves: no pathological findings No evidence of ischemic changes? 6.??Encounter for screening mammogram for malignant neoplasm of breast?? Notes: Patient Education was given regarding breast mass and breast pain. Self breast examination was discussed. Assessment and plan reviewed with patient. UTD on mammogram (October 2022)? 7.??Encounter for screening for malignant neoplasm of cervix?? Notes: Pap not done at patient's request, seeing outpt ASSISTANT CURATOR in June 2023? 8.??Acute sinusitis, recurre nce not specified, unspecified location?? Start Doxycycline Monohydrate Capsule, 100 MG, 1 capsule, Orally, every 12 hrs, 14 days, 28 Capsule, Refills 0.? Notes: Doxycycline ordered. Encourage hydration, humidification. Can continue with Netti Pot as needed, educated on using cooled, previously boiled water or distilled water.? 9.??Fatty liver?? Refill Ursodiol Capsule, 300 MG, 1 capsule, Orally, Twice a day, 90 days, 180, Refills 1.? Notes: Restart ursidiol and tarte foreman? 10.??Others?? Notes: IMonicaN, COSMETIC MANAGER student saw the patient and formulated the note under direct supervision of Dr. Briseyda Tate DNP.? * Procedure Codes:??21806 BRIE F EMOTIONAL/BEHAV ASSMT, Units: 2.00 55689 -ELECTROCARDIOGRAM, COMPLETE * Preventive Medicine:?Last CPE: 2021 @ [facility] ?DEXA: Never ?Colonoscopy: 2017 @ [facility] f/u 5 yrs ?Endoscopy: 2017 @ [facility]. ?Covid Vac: Yes & 1 booster ?Flu Vac: Never ?Shingles: ?PV: No. * Follow Up:??October (Reason: f/ u Labs ([facility])) Care Plan: * Problems:?? * Billing Information: * Visit Code:?? 48401 Preventive Care New Pt. Age 40-64. * Procedure Codes:?? 05047 BRIEF EMOTIONAL/BEHAV ASSMT. Units: 2.00. 62378 -ELECTROCARDIOGRAM, COMPLETE. * Sign off status: Completed true * Provider:??Briseyda Taet DNP Date:??0 06/05/2023 History and Physical Notes * HPI (History of Present Illness) Category Sub-Category Detail Notes Category Not es Patient Care Team Bear Keeper: [facility] - Dr. Tabatha srinivasan/Specialists: OBGYN - Maria Esther Tran MA - Allergy/Risk Compliance Analyst - Dr. Susan Reynolds Visit info Patient present s in the office for her annual physical. Patient has an appointment with OBGYN in June 2023 for her annual pap. Patient had mammogram ion 10/2022 it was normal. Patient has phone visit scheduled with Gastroenterology on July 15 to discuss having colonoscopy - over due by 3 years. Patient thinks she may have a sinus infection. Patient has been doing the Neti pot, but it is not getting any better. Examination Category Sub-Category Detail Notes Category Not es General Examination General appearance: alert, p leasant, well-nourished and in no acute distress Head: normocephalic, atrau matic Eyes: normal, pupils equal , round, reactive to light and accommodation, extraocular movement intact (EOMI) Ears: normal, auditory can al clear, tympanic membrane intact and clear, light reflex present Nose: nares patent, septum intact, maxillary sinus tenderness bilaterally Throat: clear, pharynx yessy l, uvula midline Neck / thyroid: carotid pulses are n ormal and without bruits, neck is supple, with full range of motion and no cervical lymphadenopathy Heart: regular rate and rhy thm without murmurs, gallops, clicks or rubs Chest: chest wall with no c ostochondral junction tenderness, no rib deformity and normal shape and expansion Lungs: clear to auscultatio n bilaterally, with good air movement and no rales, rhonchi or wheezes Abdomen: soft with good bowel sounds, nontender, and no masses or hepatosplenomegaly Neurologic: alert and oriented, cognitive exam grossly normal, cranial nerves 2- 12 grossly intact, deep tendon reflexes 2+ symmetrical, gait normal, normal upper and lower extremity motor strength and function Skin: skin is warm and dry , with no rashes, good skin turgor and normal hair distribution Extremities: normal extremity wit h no clubbing, cyanosis or edema, full range of motion, good capillary refill in nail beds Peripheral pulses: normal 2+ arterial p ulses Back: normal, without kyph oscoliosis or tenderness, full range of motion without difficulty Breasts: breast exam is yessy l without lesions or masses, discharge or erythema Musculoskeletal: FROM, no point tende rness Lymph nodes: no axillary, supracl avicular or inguinal lymphadenopathy, no cervical lymphadenopathy Rectal: Psych: cooperative with exa m, maintains good eye contact, normal affect/mood Female genitourinary: Oral cavity: with good dentition, mucosa moist, tongue is midline
[2024-06-03 10:01] LABS: MANUAL DIFF FLAG NO
[2024-06-03 10:10] LABS: Basophils Percent Auto 0.8 % (0-2); Eosinophils Absolute Auto 0.1 X10*3/uL (0.0-0.4); Eosinophils Percent Auto 1.3 % (0-4); Hematocrit 43.2 % (37.0-47.0); Hemoglobin 14.8 g/dl (12.0-16.0); Imm Gran Abs Auto 0.01 X10*3/uL (0.00-0.03); Imm Gran Pct Auto 0.3 % (0.0-0.4); Lymphocytes Absolute Auto 1.6 X10*3/uL (1.2-4.9); Lymphocytes Percent Auto 39.8 % (20-40); Mean Corpuscular HGB Conc 34.3 g/dl (31.0-35.0); Mean Corpuscular Hemoglobin 29.9 pg (27.0-33.0); Mean Corpuscular Volume 87.3 fL (80.0-98.0); Mean Platelet Volume 9.5 fL (9.4-12.3); Monocytes Absolute Auto 0.3 X10*3/uL (0.1-1.2); Monocytes Percent Auto 7.2 % (2-11); Neutrophils Percent Auto 50.6 % (45-73); Platelet Count 275 X10*3/uL (160-400); Red Blood Count 4.95 X10*6/uL (4.20-5.50); Red Cell Distribution Width 12.9 % (11.0-16.0); White Blood Count 3.9 X10*3/uL (4.8-10.8)
[2024-06-03 10:17] LABS: Estimated Average Glucose 100 mg/dL; Hemoglobin A1C 124.8267 umol/L; Hemoglobin A1c % 5.1 % (<6.0)
[2024-06-03 10:47] LABS: Alanine Aminotransferase 47 U/L (0-31); Albumin Level 4.3 g/dL (3.5-5.0); Alkaline Phosphatase 71 U/L (39-117); Anion Gap 13 (12-20); Aspartate Amino Transferase 34 U/L (5-31); Bilirubin Total 0.4 mg/dL (0.0-1.0); Blood Urea Nitrogen 30 mg/dL (9-16); Calcium 9.8 mg/dL (8.4-10.2); Carbon Dioxide 23 mmol/L (22-29); Chloride 107 mmol/L (96-108); Cholesterol 248 mg/dL (<200); Estimated Glomerular Filt Rate > 60; Glucose Fasting 94 mg/dL (60-99); HDL Cholesterol 82 mg/dL (>40); LDL Cholesterol Calculated 154 mg/dL (<100); Sodium 139 mmol/L (135-145); Total Protein 8.1 g/dL (6.5-8.0); Triglycerides 62 mg/dL (<150)
[2024-06-03 10:52] LABS: TSH reflex Free T4 2.82 uIU/mL (0.32-4.0)
== END 2024-06-03 06:06 | disposition home or self-care (01) ==
LOC: HO.HMGCLDS 06:05
PROVIDERS: PCP Physician Assistant; Visit Provider Physician Assistant
DX: E83.52 Hypercalcemia (principal); R73.01 Impaired fasting glucose; E78.2 Mixed hyperlipidemia
CPT/HCPCS: 36415; 80053; 80061; 83036; 84443; 85025

== ENCOUNTER 2024-06-24 10:41 | Outpatient (AMB) | payer OTHER, SELFPAY ==
--- NOTE | 2024-06-24 10:48 | MHC.PC.OV ---
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 Endo: States that her Nhan's is managed by [employer]. She followed with [facility]. CV: Blood pressure today in the office is 124/80. Believes her cholesterol is good since being on a healthy diet. Neuro: Migraines are managed with sumatriptan as needed. She avoids nightshade plants, chocolate, caffeine. Immunology: following [facility] and just saw last week. She is on Zyrtec, Nasacort and Hizentra infusion. She states that her CVID was diagnosed after having shingles for 9 years consistently. She is now off of gabapentin. Nephro: well controlled, stable GI: no abdominal sx. She thinks lfts were elevated due to shingles at the time of labs. Mammogram: follows at [facility], [facility] Mach 2023 Pap: Follows with MICHAEL- scheduled in July 2024 Colonoscopy: [facility] wing- wn due in 2033 Bone density: overdue- ordered today She is eating healthy and walking more [facility] Medical History (Updated 06/24/24 @ 11:23 by Parvin Medeiros PA-C) Nhan's disease COVID-19 Abscess of right middle finger CVID (common variable immunodeficiency) Arthritis Shingles Annual physical exam Liver hemangioma Abnormal colonoscopy Migraine Normal Pap smear Osteoarthritis Vitamin D deficiency Hyperlipidemia Shoulder pain Seasonal allergic reaction Asthma Surgical History (Updated 06/24/24 @ 11:12 by Parvin Medeiros PA-C) Hx of colonoscopy History of microdiscectomy History of tubal ligation Family History Father HTN (hypertension) Alcohol abuse Mother Alcohol abuse Brother No problems noted. Brother No problems noted. Sister No problems noted. Son No problems noted. Son No problems noted. Daughter No problems noted. 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 1. Little interest or pleasure in doing things: not at all 2. Feeling down, depressed, or hopeless: not at all 3. Trouble falling or staying asleep, or sleeping too much: not at all 4. Feeling tired or having little energy: not at all 5. Poor appetite or overeating: not at all 6. Feeling bad about yourself - or that you are a failure or have let yourself or your family down: not at all 7. Trouble concentrating on things, such as reading the newspaper or watching television: not at all 8. Moving or speaking so slowly that other people could have noticed. Or the opposite - being so fidgety or restless that you have been moving around a lot more than usual: not at all 9. Thoughts that you would be better off or of hurting yourself in some way: not at all Total score: 0 Depression Screening Interpretation: Negative Depression Screening Done: Yes 52565 - PHQ-9 Billing: Yes Source: Developed by Drs. Alfie Doran, Georgia Novak, Ayan Cochran and colleagues, with an educational michael from [employer]. Thrive Questionnaire Date Thrive assessed: 06/23/24 I am a: Patient What is your living situation today?: I have a steady place to live Within the past 12 months, did the food you bought not last and you didn't have the money to get more?: Never true Within the past 12 months, did you worry whether your food would run out before you got money to buy more?: Never true Do you have trouble paying for medicines?: No Do you have trouble getting transportation to medical appointments?: No Do you have trouble paying your heating and electricity bill?: No Do you have trouble taking care of your child, family member or friend?: No Do you have trouble with day-to-day activities such as bathing, preparing meals, shopping, managing finances, etc.?: No Are you currently unemployed and looking for a job?: No Are you interested in more education?: No Please select the resources that you would like help with: None Currently or been in a relationship where the following occur: I choose not to answer THRIVE Score: 0 AUDIT C Alcohol Use Questionnaire (AUDIT-C) 1. How often do you have a drink containing alcohol?: Monthly or less 2. How many drinks containing alcohol do you have on a typical day when you are drinking?: 1 or 2 3. How often do you have six or more drinks on one occasion?: Never Total Score: 1 WES-7 AMB Questionnaire WES-7 Date WES - 7 assessed: 10/09/23 Feeling nervous, anxious, or on edge: 0 = Not at all Not being able to stop or control worryin = Not at all Worrying too much about different things: 0 = Not at all Trouble relaxin = Not at all Being so restless that it is hard to sit still: 0 = Not at all Becoming easily annoyed or irritable: 0 = Not at all Feeling afraid as if something awful might happen: 0 = Not at all Total WES-7 score (0-4 normal; 5-9 mild; 10-14 moderate; 15-21 severe): 0 Source: Developed by Drs. Alfie Doran, Georgia Novak, Ayan Cochran and colleagues, with an educational michael from [employer]. WES-7 Assessment Billing WES-7 Assessment Tool: WES-7 Assessment 04382 Physical exam (Primary Care) Tobacco/Smoking Status: Tobacco use Status Tobacco use date assessed 10/09/23 12/28/23 12:30 Patient Tobacco Use Status Never used Tobacco 12/28/23 12:30 e-Cigarette/Vaping Use Never Used 12/28/23 12:30 Depression Screening Interpretation: Negative Thrive Assessment: Date of Thrive Assessment Date Thrive assessed 06/23/24 06/23/24 17:15 Currently or been in a relationship where the following occur: I choose not to answer Const Orientation/consciousness: patient oriented x3 HENMT Ears: hearing grossly normal bilaterally and TM's normal bilaterally General nose exam: No nasal polyps present Face and sinus: Yes sinuses nontender Mouth: Normal oral and palatal mucosa present Eyes Pupils: Equal, round and reactive pupils present EOM: EOMs intact bilaterally Neck Neck: Yes full ROM and Yes no lymphadenopathy Thyroid: Thyroid normal Chest Chest palpation & inspection: normal inspection of the chest Resp Auscultation: clear to auscultation bilaterally Cardio Rate: regular rate Rhythm: regular rhythm Heart sounds: S1 normal heart sound present and S2 normal heart sound present Peripheral pulses: Peripheral pulses 2+ throughout GI Other: Soft, nontender Auscultation: normal bowel sounds Rectal Exam - Female: deferred General: Yes no CVA tenderness Back/Spine/Pelvis Other: Nontender Back: no CVA tenderness Skin General skin exam: no rashes or lesions noted Neuro General: patient oriented x3, gait normal, CN's II-XI intact bilaterally and deep tendon reflexes 2+ bilaterally Cranial nerves: Yes Equal, round and reactive pupils present Motor exam (neuro): 5/5 motor strength present throughout Sensory Exam: double simultaneous stimulation for sensation normal Coordination: [id number]-bg-bfdi test normal and Romberg test negative Extrem General: Yes normal to inspection and Yes full ROM Psych Affect: normal affect Attitude: cooperative Thought process: Normal thought process present Thought content: Normal thought content present Insight: Good insight present (Psych) Judgement: Good judgement present (Psych) Results Reviewed Results Reviewed: Laboratory Tests 06/03/24 06:10 WBC 3.9 L RBC 4.95 Hgb 14.8 Plt Count 275 Sodium 139 Potassium 4.0 Chloride 107 Carbon Dioxide 23 Anion Gap 13 Creatinine 0.83 Estimated GFR > 60 Hemoglobin A1c % 5.1 AST 34 H ALT 47 H Alkaline Phosphatase 71 Triglycerides 62 Cholesterol 248 H LDL Cholesterol, Calc 154 H HDL Cholesterol 82 Coding Level of Care Code Est Pt Prev Care 40-64y(16432) Diagnoses Routine general medical examination at a health care facility Z00.00 IFG (impaired fasting glucose) R73.01 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 Mixed hyperlipidemia E78.2 Hyperlipidemia type: mixed hyperlipidemia Elevated LFTs R79.89 Additional Codes PHQ-9 - 95926 - PHQ-9 Billing: Yes ([id number]) WES-7 Assessment Billing - WES-7 Assessment Tool: WES-7 Assessment 55608 ([id number]) Assessment & Plan Assessment & Plan (1) Routine general medical examination at a health care facility: Code(s): Z00.00 - Encounter for general adult medical examination without abnormal findings Plan: reviewed bone density ordered (2) IFG (impaired fasting glucose): Code(s): R73.01 - Impaired fasting glucose Category: Medical Plan: a1c was 5.1 (3) Nhan's disease: Code(s): E06.3 - Autoimmune thyroiditis Category: Medical Plan: tsh wnl (4) Hyperlipidemia: Code(s): E78.5 - Hyperlipidemia, unspecified Category: Medical Qualifiers: Hyperlipidemia type: mixed hyperlipidemia Qualified Code(s): E78.2 - Mixed hyperlipidemia Plan: has changed diet will recheck in a few months (5) Elevated LFTs: Code(s): R79.89 - Other specified abnormal findings of blood chemistry Category: Medical Plan: will recheck labs has u/s ordered and schedule in July Orders: Orders XR DEXA axial skeleton Today N95.9 - Unspecified menopausal and perimenopausal disorder
[2024-06-24 10:56] VITALS: BP 124/80; PULSE 71; RESP 12; O2SAT 97; BMI 31.6
--- OUTSIDE RECORDS SUMMARY | 2024-06-24 12:25 | XMS_ITS ---
Author Organization [facility] Address [address] [place] [phone] Care Team Providers Care Corporate Sales Trainer Name Role Phone AMY DOSS Primary Care Provider REASON FOR VISIT Refills Encounters Encounter Location Date Provider Diagnosis [address] [id number] 08/14/2023 AMY DOSS PLAN OF TREATMENT No Information Progress Notes * NATHEN WHEELER MDOB:1970 (53 yo F)Acc No.[id number]:08/14/2023 Patient:??NATHEN WHEELER :1970?Age:53 Y?Sex:Fe male Phone: Address:[address] [place] [address] CARINA DONALDOKrista ROSALES [id number] * true * Date:??
--- OUTSIDE RECORDS SUMMARY | 2024-06-24 12:25 | XMS_ITS | Patient Health Record ---
Author Organization [facility] Address [address] [place] [phone] Care Team Providers Care Cotton Breeder Name Role Phone AMY DOSS Primary Care Provider ALLERGIES Allergen (clinical drug [...] Tobacco use: nonsmoker Section Notes: Lives in [place], [place] with b oyfriend & 2 children Lives in [place], [place] with b oyfriend & 2 children Lives in [place], [place] with b oyfriend & 2 children Lives in [place] with b oyfriend & 2 children Lives in [place] with b oyfriend & 2 children PROBLEMS Problem Type ICD Code Onset Dates Problem Status W/U Status Risk SNOMED Code Notes Problem Familial hypercholesterolemia (E78.01) Active confirmed Familial hypercholesterolemia (441191754) Problem Hypercholesteremia (E78.00) Active confirmed hypercholestero lemia (disorder) (50410234) Problem Non-alcoholic fatty liver disease (K76.0) Active confirmed Non-al coholic fatty liver disease (5505471402) Encounters Encounter Location Date Provider Diagnosis [address] [id number] 10/21/2023 AMY DOSS [address] [id number] 08/14/2023 AMY DOSS PLAN OF TREATMENT Pending Test Test Name Order Date Colonoscopy 06/04/2022 MAMMOGRAM, SCREENING 06/04/2022 SARS COV2/INFLUENZA A/B AND RSV RNA QL N AAT (21293) 11/14/2022 Insurance Providers Payer Name Payer Address Payer Phone Subscriber Number Group Number Insured Name Patient Relationship to Insured Coverage Start Date Coverage End Date [address] [place] [phone] [id number] NATHEN WHEELER Self - patient is the insured MEDICAL (GENERAL) HISTORY Medical History History ICD Code Cellulitis-hand Severe headaches, migraines Sinus infections Wears glasses/contacts Surgical History Surgery Date(Month/Year) Tubal ligation Tonsillectomy Back surgery-discectomy of L4-L5
--- OUTSIDE RECORDS SUMMARY | 2024-06-24 12:25 | XMS_ITS ---
Author Organization [facility] Address [address] [place], [place] [phone] Care Team Providers Care Shuttle Final Inspector Name Role Phone AMY TATE Primary Care Provider [phone] REASON FOR VISIT f/u labs Encounters Encounter Location Date Provider Diagnosis [address] [id number] 10/21/2023 AMY TATE PLAN OF TREATMENT No Information Progress Notes * NATHEN WHEELER MDOB:1970 (54 yo F)Acc No.[id number]:10/21/2023 Progress Notes Patient:??LIAM NATHEN Garcia Provider:??Amy Tate DNP :1970?Age:53 Y?Sex:Fe male Date:10/21/2023 Phone: Address:[address] [place], [place] [id number] Subjective: * Chief Complaints: * ?1. F/u labs. * Medical History:?? Objective: Assessment: Plan: * Treatment: * Billing Information: * Visit Code:?? * Procedure Codes:?? * Sign off status: Pending * Provider:??Amy Tate DNP Date:??0 10/21/2023
== END 2024-06-24 11:31 | disposition home or self-care (01) ==
LOC: HO.HMCFM 10:44
PROVIDERS: PCP Physician Assistant; Visit Provider Physician Assistant
DX: Z00.00 Encounter for general adult medical examination without abnormal findings (principal); R73.01 Impaired fasting glucose; E06.3 Autoimmune thyroiditis; E78.2 Mixed hyperlipidemia; R79.89 Other specified abnormal findings of blood chemistry

== ENCOUNTER → 2024-06-24 10:41 | Outpatient (BNVA) | payer OTHER, SELFPAY | PROVIDERS: PCP Physician Assistant; Visit Provider Physician Assistant | DX: Z00.00 Encounter for general adult medical examination without abnormal findings (principal); R73.01 Impaired fasting glucose; E06.3 Autoimmune thyroiditis; E78.2 Mixed hyperlipidemia; R79.89 Other specified abnormal findings of blood chemistry | CPT/HCPCS: 96127 ==

== ENCOUNTER 2024-08-04 07:52 | Outpatient (REF) | payer OTHER, SELFPAY ==
--- NOTE | ~2024-08-04 | US_ITS ---
EXAMINATION: US COMPLETE ABDOMEN WITH LIVER ELASTOGRAPHY CLINICAL INFORMATION: Abnormal liver function tests. COMPARISON: MRI abdomen 03/29/2017 TECHNIQUE: Real-time imaging of the abdominal viscera. Noninvasive ultrasound liver fibrosis assessment is performed using [employer] ElastPQ point quantification shear wave elastography (pSWE) with a C5-2 MHz transducer. Multiple elastography samples are obtained. FINDINGS: PANCREAS: The visualized pancreatic head and body are normal in appearance. The remainder of the pancreas is obscured from visualization by the overlying bowel gas. ABDOMINAL AORTA: No aortic aneurysm is seen. INFERIOR VENA CAVA: Visualized portions are normal. LIVER: The liver demonstrates normal size, contour and echogenicity. There is hypoechoic lesion in the posterior segment right hepatic lobe measuring 1.5 x 1.7 x 1.6 cm. No additional lesions seen. The right lobe measures 16.2 cm in length. The left lobe measures 9.6 cm in length. Portal flow is hepatopedal Shear wave liver elastography median stiffness is 1.27 m/s (reference: normal median stiffness is 1.3 m/s or less). IQR/median stiffness to assess sampling precision is 0.31 (reference: good quality data set is IQR/median stiffness of 0.15 or less). GALLBLADDER: The gallbladder is physiologically distended without evidence of stones, sludge, polyps, wall thickening or pericholecystic fluid. COMMON BILE DUCT: And bilateral duct is not visualized.. RIGHT KIDNEY: No hydronephrosis. No renal calculi or focal parenchymal lesions. The kidney measures 10.7 cm in maximum dimension. LEFT KIDNEY: No hydronephrosis. No renal calculi or focal parenchymal lesions. The kidney measures 11.5 cm in maximum dimension. SPLEEN: Unremarkable. The spleen measures 11.4 cm in maximum dimension. FREE FLUID: None seen. US/US abdomen comp w elastography IMPRESSION: 1. Hyperechoic lesion right hepatic lobe most suggestive of hemangioma. This was visualized on previous MRI abdomen 03/29/2017 2. Liver elastography: The liver stiffness 1.27 m/s /Epiq, hyperlipidemia normal. REFERENCE: Society of Radiologists in Ultrasound Liver Stiffness Thresholds (2020): LIVER STIFFNESS THRESHOLDS: *Liver Stiffness equal or less than 1.3 m/s: High probability of being normal. *Liver Stiffness less than 1 m/s: In the absence of other known clinical signs, rules out compensated advanced chronic liver disease. *Liver Stiffness 1.7-2.1 m/s: Suggestive of compensated advanced chronic liver disease but need further test for confirmation. *Liver Stiffness over 2.1 m/s: Rules in compensated advanced chronic liver disease. *Liver Stiffness over 2.4 m/s: Suggestive of clinically significant portal hypertension. QUALITY OF DATA SET: *IQR/Median value equal or less than 0.15 implies a quality data set. *IQR/Median value over 0.15 implies a poor quality data set. SIGNIFICANT CHANGE FROM PRIOR EXAM: Significant change if liver stiffness measurement is 10% or greater from prior exam. OTHER CONSIDERATIONS: The stage of liver fibrosis may be overestimated in the setting of acute hepatitis, liver inflammation, elevated liver function tests, hepatic vascular congestion, obstructive cholestasis, non-fasting state, and infiltrative diseases such as amyloidosis and lymphoma. In some patients with NAFLD, the liver stiffness thresholds for compensated advanced chronic liver disease may be lower. In causes other than viral hepatitis and NAFLD, liver stiffness thresholds are not well established. Electronically signed by: Bridger Childress MD 08/05/2024 07:11 AM EDT
--- NOTE | ~2024-08-04 | MM_ITS ---
EXAMINATION: DXA BONE DENSITY AXIAL HISTORY: N95.9 - Unspecified menopausal and perimenopausal disorder TECHNIQUE: [employer] Dual energy absorptiometry (DEXA) of the lumbar spine, total left hip, and femoral neck was performed. COMPARISON: There are no prior studies for comparison. FINDINGS: The bone mineral density of the lumbar spine is 1.222 with a T-score of 0.2, and a Z-score of 0.9. This is indicative of normal bone mineral density. The bone mineral density of the left total hip is 1.040 with a T-score of 0.3, and a Z-score of 0.8. This is indicative of normal bone mineral density. The bone mineral density of the left femoral neck is 1.927 with a T-score of -0.8, and a Z-score of 0.1. This is indicative of normal bone mineral density. FRACTURE RISK: The FRAX index suggests a risk of major osteoporotic fracture of 8.8%, and of hip fracture 0.4%. MM/XR DEXA axial skeleton IMPRESSION: Based on bone mineral density, and according to World Health Organization (WHO) criteria, the diagnosis is consistent with normal bone mineral density. All bone density values are in grams per centimeter squared (g/cm2). Statistically, 68% of repeat scans fall within 1 SD (+/- 0.010 g/cm2 for AP spine L1-L4) and 1 SD (+/- 0.012 g/cm2 for femur total) FRAX is a trademark of the [employer] [place] [facility] [employer], a World Health Organization (WHO) Collaborating Center. Electronically signed by: Alfie Ackerman MD 08/07/2024 07:15 AM EDT
--- OUTSIDE RECORDS SUMMARY | 2024-08-04 07:56 | XMS_ITS ---
Author Organization [facility] Address [address] [place], [place] [phone] Care Team Providers Care Outpatient Phlebotomist Name Role Phone AMY TATE Primary Care Provider REASON FOR VISIT f/u labs Encounters Encounter Location Date Provider Diagnosis [address] [id number] 10/21/2023 AMY TATE PLAN OF TREATMENT No Information Progress Notes * NATHEN WHEELER MDOB:1970 (54 yo F)Acc No.[id number]:10/21/2023 Progress Notes Patient:??NATHEN WHEELER Provider:??Amy Tate DNP :1970?Age:53 Y?Sex:Fe male Date:10/21/2023 Phone: Address:[address] [place], [place] [id number] Subjective: * Chief Complaints: * ?1. F/u labs. * Medical History:?? Objective: Assessment: Plan: * Treatment: * Billing Information: * Visit Code:?? * Procedure Codes:?? * Sign off status: Pending * Provider:??Amy Tate DNP Date:??0 10/21/2023
--- OUTSIDE RECORDS SUMMARY | 2024-08-04 07:56 | XMS_ITS | Patient Health Record ---
Author Organization [facility] Address [address] [place] [phone] Care Team Providers Care Export Administrator Name Role Phone AMY DOSS Primary Care [...] Tobacco use: nonsmoker Section Notes: Lives in [place], [place] with b oyfriend & 2 children Lives in [place], [place] with b oyfriend & 2 children Lives in [place], [place] with b oyfriend & 2 children Lives in [place] with b oyfriend & 2 children Lives in [place] with b oyfriend & 2 children PROBLEMS Problem Type ICD Code Onset Dates Problem Status W/U Status Risk SNOMED Code Notes Problem Familial hypercholesterolemia (E78.01) Active confirmed Familial hypercholesterolemia (743336818) Problem Hypercholesteremia (E78.00) Active confirmed hypercholestero lemia (disorder) (24556083) Problem Non-alcoholic fatty liver disease (K76.0) Active confirmed Non-al coholic fatty liver disease (6815842028) Encounters Encounter Location Date Provider Diagnosis [address] [id number] 10/21/2023 AMY DOSS [address] [id number] 08/14/2023 AMY DOSS PLAN OF TREATMENT Pending Test Test Name Order Date Colonoscopy 06/04/2022 MAMMOGRAM, SCREENING 06/04/2022 SARS COV2/INFLUENZA A/B AND RSV RNA QL N AAT (00057) 11/14/2022 Insurance Providers Payer Name Payer Address Payer Phone Subscriber Number Group Number Insured Name Patient Relationship to Insured Coverage Start Date Coverage End Date [address] [place] [phone] [id number] NATHEN WHEELER Self - patient is the insured MEDICAL (GENERAL) HISTORY Medical History History ICD Code Cellulitis-hand Severe headaches, migraines Sinus infections Wears glasses/contacts Surgical History Surgery Date(Month/Year) Tubal ligation Tonsillectomy Back surgery-discectomy of L4-L5
--- OUTSIDE RECORDS SUMMARY | 2024-08-04 07:56 | XMS_ITS ---
Author Organization [facility] Address [address] [place] [phone] Care Team Providers Care Broadcast Correspondent Name Role Phone BRISEYDA TATE Primary Care Provider [phone] ALLERGIES Allergen (clinical drug ingredient) Drug/Non Drug [...] Tobacco use: nonsmoker Section Notes: Lives in [place], [place] with b oyfriend & 2 children VITAL SIGNS Blood pressure systolic 140 mm Hg 06/05/19 24 Blood pressure diastolic 92 mm Hg 024 Heart Rate 82 /min 06/05/2023 Height 59.5 in 06/05/2023 Weight 150 lbs 06/05/2023 BMI 29.79 kg/m2 06/05/2023 Oximetry 96 % 06/05/2023 Height-cm 151.13 cm 06/05/2023 Weight-kg 68.04 kg 06/05/2023 Encounters Encounter Location Date Provider Diagnosis [address] [id number] 06/05/2023 BRISEYDA TATE Annual visit for general [...] or to get rid of a hangover (eye-data entry operator)? N Total Score: 0 Scoring: Item responses [...] disorders (ICD-10 - Z13.6) EKG: Rhythm: sinus, [place]: normal, P waves: visible, W[place] interval: WNL, QRS dur: WNL, QT: WNL, [...] not done at patient's request, seeing outpt OUTSIDE PLANT TECHNICIAN in June 2023 06/05/2023 Acute sinusitis, recurrence not specified, unspecified location (ICD-10 - J01.90) Doxycycline ordered. Encourage hydration, humidification. Can continue with Netti Pot as needed, educated on using cooled, previously boiled water or distilled water. 06/05/2023 Fatty liver (ICD-10 - K76.0) Restart ursidiol and tarte foreman 06/05/2023 Monica Valle BSN, SUPERINTENDENT POLICE student saw the patient and formulated the [...] or to get rid of a hangover (eye-data entry operator)? N Total Score: 0 Scoring: Item responses [...] screening for cardiovascular disorders EKG: Rhythm: sinus, [place]: normal, P waves: visible, W[place] interval: WNL, QRS dur: WNL, QT: WNL, [...] done at patient's request, albaro augustin outpt OUTSIDE PLANT TECHNICIAN in June 2023 Acute sinusitis, recurrence not specified, unspecified location Doxycycline ordered. Encourage hydration , humidification. Can continue with Netti Pot as needed, educated on using cooled, previously boiled water or distilled water. Fatty liver Restart ursidiol and tarte foreman Monica Valle, SUPERINTENDENT POLICE student saw the patient and formulated the note under direct supervision of Dr. Briseyda Tate DNP. Next Appt Details Follow Up: October, Reason: f/u Labs ([facility]) Progress Notes * CRISTIANNATHEN GÓMEZ MDOB:1970 (53 yo F)Acc No.[id number]:06/05/2023 Progress Note Patient:??NATHEN WHEELER Provider:??Briseyda Tate DNP :1970?Age:53 Y?Sex:Fe male Date:06/05/2023 Phone: Address:[address] [place] [address] [place], [id number] Subjective: * Chief Complaints: * ?CPE/EKG * HPI: ?Patient Care Team:?Senior Technical Project Manager:??[facility] - Dr. Mays.? Providers/Specialists: OBGYN - Maria Esther Tran MA - Allergy/Weight Trainer - Dr. Susan Reynolds. ?Visit info:? Patient [...] sleeping, substance abuse.? * Medical History:?? * Cork Insulation Installer History:?Menstrual history: ?Age of Menarche:??9 ?Age of Menopause:??50 ?Last pap smear date??Has appointment 06/2023 @ [facility] in [place].?Last mammogram date??October 30, 2022 - [facility] - Neg..?? * OB [...] you drink alcohol?: Yes, Occasionally. ?Lives in [place], [place] with boyfriend & 2 children. * [...] or to get rid of a hangover (eye-data entry operator)? N Total Score: 0Scoring: Item responses on [...] for cardiovascular disorders?? Notes: EKG: Rhythm: sinus, [place]: normal, P waves: visible, [place] interval: WNL, QRS dur: WNL, QT: WNL, [...] not done at patient's request, seeing outpt OUTSIDE PLANT TECHNICIAN in June 2023? 8.??Acute sinusitis, recurre nce [...] ursidiol and tarte foreman? 10.??Others?? Notes: IMonicaN, SUPERINTENDENT POLICE student saw the patient and formulated the note under direct supervision of Dr. Briseyda Tate DNP.? * Procedure Codes:??32816 BRIE F EMOTIONAL/BEHAV ASSMT, Units: 2.00 51019 -ELECTROCARDIOGRAM, COMPLETE * Preventive Medicine:?Last CPE: 2021 @ [facility] ?DEXA: Never ?Colonoscopy: 2017 @ [facility] f/u 5 yrs ?Endoscopy: 2017 @ [facility]. ?Covid Vac: Yes & 1 booster ?Flu Vac: Never ?Shingles: ?PV: No. * Follow Up:??October (Reason: f/ u Labs ([facility])) Care Plan: * Problems:?? * Billing Information: * Visit Code:?? 65960 Preventive Care New Pt. Age 40-64. * Procedure Codes:?? 82581 BRIEF EMOTIONAL/BEHAV ASSMT. Units: 2.00. 74177 -ELECTROCARDIOGRAM, COMPLETE. * Sign off status: Completed true * Provider:??Briseyda Tate DNP Date:??0 06/05/2023 History and Physical Notes * HPI (History of Present Illness) Category Sub-Category Detail Notes Category Not es Patient Care Team Senior Technical Project Manager: [facility] - Dr. Tabatha srinivasan/Specialists: OBGYN - Maria Esther Tran MA - Allergy/Weight Trainer - Dr. Susan Reynolds Visit info Patient [...]
--- OUTSIDE RECORDS SUMMARY | 2024-08-04 07:56 | XMS_ITS ---
Author Organization [facility] Address [address] [place] [phone] Care Team Providers Care Plastic Jig And Fixture Builder Name Role Phone AMY DOSS Primary Care Provider REASON FOR VISIT Refills Encounters Encounter Location Date Provider Diagnosis [address] [id number] 08/14/2023 AMY DOSS PLAN OF TREATMENT No Information Progress Notes * NATHEN WHEELER MDOB:1970 (53 yo F)Acc No.[id number]:08/14/2023 Patient:??NATHEN WHEELER :1970?Age:53 Y?Sex:Fe male Phone: Address:[address] [place] [address] CARINA DONALDOKrista ROSALES [id number] * true * Date:??
== END 2024-08-04 07:53 | disposition home or self-care (01) ==
LOC: HO.US 07:52
PROVIDERS: PCP Physician Assistant; Visit Provider Physician Assistant
DX: N95.9 Unspecified menopausal and perimenopausal disorder (principal); D18.03 Hemangioma of intra-abdominal structures
CPT/HCPCS: 76700; 76981; 77080

== ENCOUNTER → 2024-08-04 07:52 | Outpatient (BNV) | payer OTHER, SELFPAY | PROVIDERS: PCP Physician Assistant; Visit Provider Radiology Diagnostic Radiology | DX: E28.39 Other primary ovarian failure (principal) | CPT/HCPCS: 77080 ==

== ENCOUNTER 2024-10-02 06:01 | Outpatient (REF) | payer OTHER, SELFPAY ==
[2024-10-02 10:14] LABS: MANUAL DIFF FLAG NO
[2024-10-02 10:15] LABS: Basophils Percent Auto 0.2 % (0-2); Eosinophils Absolute Auto 0.1 X10*3/uL (0.0-0.4); Eosinophils Percent Auto 1.9 % (0-4); Hematocrit 42.7 % (37.0-47.0); Imm Gran Abs Auto 0.02 X10*3/uL (0.00-0.03); Imm Gran Pct Auto 0.4 % (0.0-0.4); Lymphocytes Absolute Auto 1.4 X10*3/uL (1.2-4.9); Lymphocytes Percent Auto 30.3 % (20-40); Mean Corpuscular HGB Conc 35.1 g/dl (31.0-35.0); Mean Corpuscular Hemoglobin 30.4 pg (27.0-33.0); Mean Corpuscular Volume 86.6 fL (80.0-98.0); Mean Platelet Volume 9.7 fL (9.4-12.3); Monocytes Absolute Auto 0.4 X10*3/uL (0.1-1.2); Monocytes Percent Auto 7.8 % (2-11); Neutrophils Absolute Auto 2.8 x10*3/uL (2.0-8.3); Neutrophils Percent Auto 59.4 % (45-73); Platelet Count 270 X10*3/uL (160-400); Red Blood Count 4.93 X10*6/uL (4.20-5.50); Red Cell Distribution Width 12.4 % (11.0-16.0); White Blood Count 4.8 X10*3/uL (4.8-10.8)
[2024-10-02 10:56] LABS: Alanine Aminotransferase 99 U/L (0-31); Albumin Level 4.3 g/dL (3.5-5.0); Alkaline Phosphatase 82 U/L (39-117); Aspartate Amino Transferase 64 U/L (5-31); Bilirubin Direct 0.2 mg/dL (0.0-0.5); Bilirubin Total 0.4 mg/dL (0.0-1.0); Cholesterol 244 mg/dL (<200); Ferritin 160 ng/mL (10-250); Gamma Glutamyl Transpeptidase 47 U/L (7-33); HDL Cholesterol 74 mg/dL (>40); Iron 66 mcg/dL (30-160); LDL Cholesterol Calculated 152 mg/dL (<100); Percent Iron Saturation 21 % (15-50); Total Iron Binding Capacity 316 mcg/dL (228-428); Total Protein 7.4 g/dL (6.5-8.0); Triglycerides 92 mg/dL (<150); Unsaturated Iron Binding 250 ug/dL
[2024-10-02 11:06] LABS: HBS Num1 275.23 mIU/mL (0-7.99); ~HepC Num1 0.15 S/CO (0.00-0.79); ~Hepatitis B Surface Antibody REACTIVE (Nonreactive); ~Hepatitis C Antibody Nonreactive (Nonreactive)
== END 2024-10-02 06:02 | disposition home or self-care (01) ==
LOC: HO.HMGCLDS 06:01
PROVIDERS: PCP Physician Assistant; Visit Provider Physician Assistant
DX: E78.2 Mixed hyperlipidemia (principal); D18.03 Hemangioma of intra-abdominal structures; R94.5 Abnormal results of liver function studies
CPT/HCPCS: 36415; 80061; 80076; 82728; 82977; 83540; 85025; 86706; 86803

== ENCOUNTER 2024-11-06 06:03 | Outpatient (REF) | payer OTHER, SELFPAY ==
[2024-11-06 10:16] LABS: MANUAL DIFF FLAG NO
[2024-11-06 10:18] LABS: Hematocrit 42.1 % (37.0-47.0); Hemoglobin 14.3 g/dl (12.0-16.0); Imm Gran Abs Auto 0.01 X10*3/uL (0.00-0.03); Imm Gran Pct Auto 0.2 % (0.0-0.4); Lymphocytes Absolute Auto 1.6 X10*3/uL (1.2-4.9); Mean Corpuscular HGB Conc 34.0 g/dl (31.0-35.0); Mean Corpuscular Hemoglobin 29.9 pg (27.0-33.0); Mean Corpuscular Volume 88.1 fL (80.0-98.0); NRBC Abs Auto 0.000 X10*3/uL (0.0-0.012); NRBC Pct Auto 0.0 /100WBC (0.0-0.2); Platelet Count 254 X10*3/uL (160-400); Red Blood Count 4.78 X10*6/uL (4.20-5.50); White Blood Count 4.4 X10*3/uL (4.8-10.8)
[2024-11-06 10:35] LABS: Alanine Aminotransferase 35 U/L (0-31); Albumin Level 4.2 g/dL (3.5-5.0); Alkaline Phosphatase 77 U/L (39-117); Aspartate Amino Transferase 34 U/L (5-31); Total Protein 6.9 g/dL (6.5-8.0)
== END 2024-11-06 06:04 | disposition home or self-care (01) ==
LOC: HO.HMGCLDS 06:03
PROVIDERS: PCP Physician Assistant; Visit Provider Physician Assistant
DX: R79.89 Other specified abnormal findings of blood chemistry (principal); D18.03 Hemangioma of intra-abdominal structures
CPT/HCPCS: 36415; 80076; 85025